=== PATIENT | male | born 1995 ===

== ENCOUNTER 2016-07-03 14:04 | Emergency (ER) | payer MEDICAID, OTHER ==
[2016-07-03 14:13] VITALS: TEMP 98.6
[2016-07-03] MEDS ORDERED: Albuterol-Ipratrop 3 mg / 0.5 (3 ml) UD ONE ×4 (14:16→16:16)
[2016-07-03 14:32] VITALS: BP 123/79
[2016-07-03] MEDS ORDERED: Albuterol-Ipratrop 3 mg / 0.5 (3 ml) UD IH SCH (14:45)
[2016-07-03 16:33] VITALS: O2SAT 99
--- NOTE | 2016-07-03 17:11 | C.PDOC ---
Time Seen by Provider: 07/03/16 14:21 Chief Complaint (Nursing): Shortness Of Breath History Per: Patient Onset/Duration Of Symptoms: Days (3) Current Symptoms Are (Timing): Still Present Associated Symptoms: Dyspnea, Cough Preciptating Factors: Ran Out Of Meds, Exposure To: (dust) Severity: Moderate Additional History Per: Prior Records - Asthma History Prior Intubation (For Asthma): None Rescue Medications: None Control Medications: None Past Medical History Reviewed: Historical Data, Nursing Documentation, Vital Signs Vital Signs: Last Vital Signs Temp 98.6 F 07/03/16 14:08 Pulse 112 H 07/03/16 14:29 Resp 20 07/03/16 16:32 BP 123/79 07/03/16 14:29 Pulse Ox 99 07/03/16 16:32 - Medical History PMH: Asthma Surgical History: No Surg Hx Family History: States: Unknown Family Hx - Social History Hx Tobacco Use: No Hx Alcohol Use: No Hx Substance Use: No Review Of Systems Except As Marked, All Systems Reviewed And Found Negative. Constitutional: Negative for: Fever, Weakness ENT: Negative for: Throat Pain Cardiovascular: Negative for: Chest Pain Respiratory: Positive for: Cough, Shortness of Breath, Wheezing. Negative for: Hemoptysis, Sputum Gastrointestinal: Negative for: Vomiting, Abdominal Pain Musculoskeletal: Negative for: Neck Pain, Back Pain, Leg Pain Skin: Negative for: Rash Neurological: Negative for: Weakness, Numbness, Seizures, Altered Mental Status Physical Exam - Physical Exam Appears: Non-toxic, In Acute Distress (mild) Skin: Normal Color, Warm, Dry, No Rash Head: Atraumatic, Normacephalic Eye(s): bilateral: PERRL, EOMI Neck: Normal ROM, Supple Chest: Symmetrical Cardiovascular: Rhythm Regular Respiratory: No Accessory Muscle Use, Wheezing Gastrointestinal/Abdominal: Soft, No Tenderness Back: No CVA Tenderness Extremity: Normal ROM, No Pedal Edema, No Calf Tenderness Neurological/Psych: Oriented x3, Normal Motor, Normal Sensation ED Course And Treatment O2 Sat by Pulse Oximetry: 99 Pulse Ox Interpretation: Normal Progress Note: Lungs now with only minimal wheezing. Peak flow improved to 350. Pt feels much better now and wants to go home. No SOB. Reevaluation Time: 17:11 Reassessment Condition: Improved Progress - Interventions Interventions:: Observation - Medications Administered Oral: Corticosteriod Inhaled nebulized: Anticholinergic, Beta-2 agonist - Data Reviewed Data Reviewed: Old records - Patient Status Patient status: Mostly improved - Continuity of Care Discussed patient case with:: Patient, ED Nurse - Patient Plan Patient Plan: Discharge, F/U with PCP Disposition Counseled Patient/Family Regarding: Diagnosis, Need For Followup, Rx Given - Disposition Referrals: [facility] [Outside] Disposition: HOME/ ROUTINE Disposition Time: 17:12 Condition: IMPROVED Additional Instructions: Follow up in the clinic. Return to the ER if you develop chest pain, shortness of breath, worsening of symptoms or if you have any other concerns. Prescriptions: Albuterol HFA [Ventolin HFA 90 mcg/actuation (8 g)] 2 puff IH Q4 PRN #1 unit PRN Reason: Wheezing predniSONE [Prednisone] 2 tab PO DAILY #8 tab Instructions: Asthma (ED) - Clinical Impression Clinical Impression: Asthma exacerbation
[2016-07-03 17:15] VITALS: PULSE 98; RESP 18
== END 2016-07-03 17:16 | disposition home or self-care (01) ==
LOC: C.ER 14:04
DX: J45.901 Unspecified asthma with (acute) exacerbation (principal)

== ENCOUNTER 2016-08-23 11:23 | Emergency (ER) | payer MEDICAID, OTHER ==
[2016-08-23] MEDS ORDERED: Albuterol-Ipratrop 3 mg / 0.5 (3 ml) UD INH STA ×3 (11:41→12:57)
--- NOTE | 2016-08-23 11:42 | C.PDOC ---
History Of Present Illness 20 y/o male with hx asthma, no intubations, not steroid dependent, last ED visit 2 months ago, c/o shortness of breath and wheezing for 3-4 days. pt also with cough with yellowish sputum, no fever or chills; pt is a non-smoker. pt has no medications at home. denies chest pain and palpitations. Time Seen by Provider: 08/23/16 11:28 Chief Complaint (Nursing): Shortness Of Breath History Per: Patient History/Exam Limitations: no limitations Onset/Duration Of Symptoms: Days (3) Current Symptoms Are (Timing): Still Present Initiating Event: Other (exposure to dust at work) Associated Symptoms: Productive Cough. denies: Fever, Heart Racing, Leg/Calf Pain, Ankle/Leg Swelling Recent travel outside of the [place]: No Past Medical History Reviewed: Historical Data, Nursing Documentation, Vital Signs Vital Signs: Last Vital Signs Temp 98.3 F 08/23/16 11:42 Pulse 104 H 08/23/16 13:56 Resp 20 08/23/16 13:56 BP 147/75 08/23/16 13:56 Pulse Ox 98 08/23/16 13:56 - Medical History PMH: Asthma Surgical History: No Surg Hx Family History: States: Unknown Family Hx - Social History Hx Tobacco Use: No Hx Alcohol Use: No Hx Substance Use: No - Immunization History Hx Tetanus Toxoid Vaccination: No Hx Influenza Vaccination: No Review Of Systems Constitutional: Negative for: Fever, Chills ENT: Negative for: Ear Pain, Throat Pain Cardiovascular: Negative for: Chest Pain, Palpitations Respiratory: Positive for: Cough, Shortness of Breath, Wheezing. Negative for: Pleuritic Pain Gastrointestinal: Negative for: Abdominal Pain Skin: Negative for: Rash Physical Exam - Physical Exam Appears: Non-toxic, No Acute Distress Skin: Warm, Dry Head: Atraumatic, Normacephalic Eye(s): bilateral: Normal Inspection Oral Mucosa: Moist Throat: Normal Neck: Normal ROM Chest: Symmetrical, No Deformity, No Tenderness Cardiovascular: Rhythm Irregular (occasional irregular beat, rate approx 100) Respiratory: No Accessory Muscle Use, No Rales, No Rhonchi, Wheezing (bilateral , inspiratory and expiratory, all levy) Gastrointestinal/Abdominal: Soft, No Tenderness Extremity: No Pedal Edema, No Calf Tenderness Neurological/Psych: Oriented x3, Normal Speech, Normal Cognition ED Course And Treatment ECG: Interpreted By Me, Viewed By Me ECG Rhythm: Sinus Rhythm Interpretation Of ECG: nsr with sinus arrhythmia, rightward axis Rate From EC O2 Sat by Pulse Oximetry: 99 Pulse Ox Interpretation: Normal Medical Decision Making Medical Decision Making: pt with hx asthma, ran out of meds, with wheezing x 3-4 days. will give steroids and duonebs and re-assess. 1221 pm pt feeling a bit better, still with bilateral wheezing. pf after first tx 250. pt sts max pf up to 500, duoneb ordered. 1258 pm pt still wheezing, cough with phlegm, pf 250 after 2 tx, 3rd tx ordered 326 pm pt feeling much better, is ready to go home, has scant wheezing that clears with productive cough. pt ambulates around ED without sob. pf 400. will d/c with ventolin pump and steroilds Disposition Counseled Patient/Family Regarding: Diagnosis, Need For Followup, Rx Given - Disposition Referrals: [facility] [Outside] [facility] [Outside] Disposition: HOME/ ROUTINE Disposition Time: 15:28 Condition: IMPROVED Additional Instructions: Use pump as directed. Take over the counter Robitussen DM or Mucinex DM- generic brand is fine. Follow up in medical clinic in a few days. Return to ER for any worsening symptoms, trouble breathing or other concerns, Check your peak flow daily. Prescriptions: Albuterol HFA [Ventolin HFA 90 mcg/actuation (8 g)] 2 puff IH Q4 #1 inhaler predniSONE [predniSONE Tab] 2 tab PO DAILY #8 tab Instructions: Asthma (ED) Forms: Gen Discharge Inst Czech - Clinical Impression Clinical Impression: Asthma exacerbation
[2016-08-23 11:43] VITALS: RESP 20
[2016-08-23] MEDS ORDERED: Albuterol-Ipratrop 3 mg / 0.5 (3 ml) UD ONE ×3 (11:58→13:30)
[2016-08-23 15:35] VITALS: BP 114/73; PULSE 96; TEMP 98.5
[2016-08-23 22:15] VITALS: O2SAT 99
--- NOTE | 2016-08-29 16:45 | CARD ---
APPROVED REPORT EKG Measurement Heart [id number] <Conclusion> Normal sinus rhythm with sinus arrhythmia Rightward axis Borderline ECG
== END 2016-08-23 15:39 | disposition home or self-care (01) ==
LOC: C.ER 11:23
DX: J45.901 Unspecified asthma with (acute) exacerbation (principal)

== ENCOUNTER 2016-10-09 13:31 | Emergency (ER) | payer MEDICAID ==
[2016-10-09 13:41] VITALS: TEMP 97
[2016-10-09] MEDS ORDERED: Albuterol-Ipratrop 3 mg / 0.5 (3 ml) UD ONE ×3 (13:51→14:16)
[2016-10-09] MEDS ORDERED: Albuterol-Ipratrop 3 mg / 0.5 (3 ml) UD INH STA ×3 (13:54→14:17)
--- NOTE | 2016-10-09 15:26 | RAD ---
HISTORY: cough/wheezing COMPARISON: None available. TECHNIQUE: Chest PA and lateral FINDINGS: LUNGS: No focal consolidation. Please note that chest x-ray has limited sensitivity for the detection of pulmonary masses. PLEURA: No significant pleural effusion identified. No definite pneumothorax . CARDIOVASCULAR: The cardiomediastinal silhouette appears within normal limits of size. OSSEOUS STRUCTURES: No acute osseous abnormality identified. VISUALIZED UPPER ABDOMEN: Unremarkable. OTHER FINDINGS: None. IMPRESSION: No focal consolidation, significant pleural effusion, or definite pneumothorax identified.
--- NOTE | 2016-10-09 15:46 | C.PDOC ---
History Of Present Illness 21 y/o male pmhx asthma presents to the ED with complaints of asthma exacerbation x2 days. Pt reports cough and wheezing. Denies fever, chills, sore throat or any other complaints. Pt ran out of medications and nebulizer machine broke. Time Seen by Provider: 10/09/16 14:10 Chief Complaint (Nursing): Shortness Of Breath History Per: Patient History/Exam Limitations: no limitations Onset/Duration Of Symptoms: Days Current Symptoms Are (Timing): Still Present Initiating Event: Out Of Medications Severity: Moderate Associated Symptoms: denies: Fever, Chills Recent travel outside of the [place]: No Past Medical History Reviewed: Historical Data, Nursing Documentation, Vital Signs Vital Signs: Last Vital Signs Temp 97 F L 10/09/16 13:38 Pulse 87 10/09/16 16:05 Resp 18 10/09/16 16:05 BP 119/78 10/09/16 16:05 Pulse Ox 96 10/09/16 16:32 - Medical History PMH: Asthma Family History: States: Unknown Family Hx - Social History Hx Tobacco Use: No Hx Alcohol Use: No Hx Substance Use: No - Immunization History Hx Tetanus Toxoid Vaccination: No Hx Influenza Vaccination: No Review Of Systems Except As Marked, All Systems Reviewed And Found Negative. Constitutional: Negative for: Fever, Chills ENT: Negative for: Throat Pain Respiratory: Positive for: Cough, Shortness of Breath Physical Exam - Physical Exam Appears: Non-toxic, No Acute Distress Skin: Warm, Dry, No Rash Head: Atraumatic, Normacephalic Chest: Symmetrical Cardiovascular: Rhythm Regular, No Murmur Respiratory: No Rales, No Rhonchi, Wheezing (diffuse) Extremity: Normal ROM Neurological/Psych: Oriented x3, Normal Speech, Normal Cognition ED Course And Treatment O2 Sat by Pulse Oximetry: 96 (room air) Pulse Ox Interpretation: Normal - Radiology CXR: Interpreted by Me CXR Interpretation: Yes: No Acute Disease Progress Note: Plan: nebulizer treatements (3), CXR, rednisone. On reassessment , patient is resting comfortably with no wheezing, chest pain, or retractions. Oxygen saturation and breath sounds have improved. Patient is alert and oriented x 3. Patient was advised to follow up with physician/clinic in 1-2 days and return to ED if symptoms worsen or persist. Disposition - Disposition Disposition: HOME/ ROUTINE Disposition Time: 15:47 Condition: IMPROVED Additional Instructions: Follow up with PMD/Clinic within 2-3 days. Return to ED if feel worse. Prescriptions: Albuterol 0.083% [Albuterol Sulfate 3 Ml] 3 ml IH .Q4-6H #100 vial Nebulizer [Compact Compressor Nebulizer] 1 dev XX PRN PRN #1 dev PRN Reason: Wheezing predniSONE [predniSONE Tab] 2 tab PO DAILY #8 tab Albuterol HFA [Ventolin HFA 90 mcg/actuation (8 g)] 1 puff IH .Q4-6H #1 inhaler Instructions: Asthma (ED) - Clinical Impression Clinical Impression: Asthma exacerbation - PA / [employer] / Resident Statement MD/DO has reviewed & agrees with the documentation as recorded. - Scribe Statement The provider has reviewed the documentation as recorded by the Scribanne Avalos All medical record entries made by the Scribanne were at my direction and personally dictated by me. I have reviewed the chart and agree that the record accurately reflects my personal performance of the history, physical exam, medical decision making, and the department course for this patient. I have also personally directed, reviewed, and agree with the discharge instructions and disposition.
[2016-10-09 16:06] VITALS: BP 119/78; PULSE 87; RESP 18
[2016-10-09 16:29] VITALS: O2SAT 96
== END 2016-10-09 16:06 | disposition home or self-care (01) ==
LOC: C.ER 13:31
DX: J45.901 Unspecified asthma with (acute) exacerbation (principal)

== ENCOUNTER 2016-11-14 18:00 | Emergency (ER) | payer SELFPAY ==
[2016-11-14] MEDS ORDERED: Albuterol-Ipratrop 3 mg / 0.5 (3 ml) UD ONE ×2 (18:04→20:06)
[2016-11-14 18:06] VITALS: BMI 22.8
[2016-11-14 18:37] VITALS: O2SAT 95
--- NOTE | 2016-11-14 19:31 | C.PDOC ---
History Of Present Illness Patient presents to the ER with a complaint of wheezing and SOB; he states he ran out of his inhaler. Patient is currently speaking in complete sentences; denies chest pain, palpitations, fever, or chills. Time Seen by Provider: 11/14/16 19:31 Chief Complaint (Nursing): Shortness Of Breath History Per: Patient History/Exam Limitations: no limitations Onset/Duration Of Symptoms: Hrs Current Symptoms Are (Timing): Still Present Initiating Event: Out Of Medications Current Respiratory Medications: Steroid Inhaler Severity: Mild Pain Scale Rating Of: 4 Associated Symptoms: denies: Fever, Chills Recent travel outside of the [place]: No Past Medical History Reviewed: Historical Data, Nursing Documentation, Vital Signs Vital Signs: Last Vital Signs Temp 98.5 F 11/14/16 18:05 Pulse 99 H 11/14/16 18:05 Resp 16 11/14/16 18:34 BP 124/75 11/14/16 18:05 Pulse Ox 95 11/14/16 19:52 - Medical History PMH: Asthma Surgical History: No Surg Hx Family History: States: No Known Family Hx - Social History Hx Tobacco Use: No Hx Alcohol Use: No Hx Substance Use: No - Immunization History Hx Tetanus Toxoid Vaccination: No Hx Influenza Vaccination: No Review Of Systems Constitutional: Negative for: Fever, Chills Cardiovascular: Negative for: Chest Pain, Palpitations Respiratory: Positive for: Shortness of Breath, Wheezing Physical Exam - Physical Exam Appears: Non-toxic, Other (Awake, Alert) Skin: Warm, Dry Oral Mucosa: Moist Chest: Symmetrical, No Tenderness Cardiovascular: Rhythm Regular, No Murmur Respiratory: No Rales, No Rhonchi, Wheezing (Scattered) Gastrointestinal/Abdominal: Soft, No Tenderness Neurological/Psych: Oriented x3 ED Course And Treatment O2 Sat by Pulse Oximetry: 95 (Room air) Pulse Ox Interpretation: Normal Progress Note: went to resses the patient, but pt had eloped Disposition Counseled Patient/Family Regarding: Studies Performed, Diagnosis - Disposition Disposition: ELOPEMENT - ER ONLY Disposition Time: 19:31 Condition: FAIR Forms: [facility] (Turkmen) - Clinical Impression Clinical Impression: Asthma - Scribe Statement The provider has reviewed the documentation as recorded by the Scribanne Parada All medical record entries made by the Scribe were at my direction and personally dictated by me. I have reviewed the chart and agree that the record accurately reflects my personal performance of the history, physical exam, medical decision making, and the department course for this patient. I have also personally directed, reviewed, and agree with the discharge instructions and disposition.
[2016-11-14] MEDS ORDERED: Albuterol-Ipratrop 3 mg / 0.5 (3 ml) UD IH SCH (19:45)
[2016-11-14 20:36] VITALS: BP 118/77; PULSE 91; RESP 20; TEMP 98.1
== END 2016-11-14 20:26 | disposition left against medical advice (07) ==
LOC: C.ER 18:00
DX: J45.909 Unspecified asthma, uncomplicated (principal)

== ENCOUNTER 2016-11-30 18:19 | Emergency (ER) | payer MEDICAID ==
[2016-11-30 18:19] VITALS: BMI 22.8
[2016-11-30] MEDS ORDERED: Albuterol-Ipratrop 3 mg / 0.5 (3 ml) UD ONE ×3 (18:32→19:29)
[2016-11-30] MEDS: Albuterol-Ipratrop 3 mg / 0.5 (3 ml) UD INH STA ×2 (18:35→19:07)
[2016-11-30] MEDS ORDERED: Albuterol-Ipratrop 3 mg / 0.5 (3 ml) UD INH SCH (19:00)
[2016-11-30] MEDS ORDERED: Albuterol-Ipratrop 3 mg / 0.5 (3 ml) UD INH STA ×2 (19:14)
--- NOTE | 2016-11-30 19:15 | C.PDOC ---
History Of Present Illness 21 year old male with a Hx of asthma with previous hospital admissions, never intubated, presents to the ER with a complaint of asthma exacerbation since yesterday, associated with some wheezing. Denies chest pain, fever, or other complaints. Time Seen by Provider: 11/30/16 19:12 Chief Complaint (Nursing): Shortness Of Breath History Per: Patient History/Exam Limitations: no limitations Onset/Duration Of Symptoms: Hrs Current Symptoms Are (Timing): Still Present Initiating Event: Other (Not known) Current Respiratory Medications: None Associated Symptoms: denies: Fever, Chest Pain Recent travel outside of the [place]: No Past Medical History Reviewed: Historical Data, Nursing Documentation, Vital Signs Vital Signs: Last Vital Signs Temp 98.5 F 11/30/16 20:52 Pulse 95 H 11/30/16 20:52 Resp 16 11/30/16 20:52 BP 121/66 11/30/16 20:52 Pulse Ox 98 11/30/16 22:42 - Medical History PMH: Asthma Surgical History: No Surg Hx Family History: States: Unknown Family Hx - Social History Hx Tobacco Use: No Hx Alcohol Use: No Hx Substance Use: No - Immunization History Hx Tetanus Toxoid Vaccination: No Hx Influenza Vaccination: No Review Of Systems Constitutional: Negative for: Fever Cardiovascular: Negative for: Chest Pain, Palpitations Respiratory: Positive for: Wheezing Gastrointestinal: Negative for: Nausea, Vomiting Neurological: Negative for: Weakness, Numbness Physical Exam - Physical Exam Appears: Non-toxic Skin: Normal Color, Warm, Dry Head: Atraumatic, Normacephalic Oral Mucosa: Moist Chest: Symmetrical, No Tenderness Cardiovascular: Rhythm Regular, No Murmur Respiratory: No Rales, No Rhonchi, Wheezing (Scattered) Gastrointestinal/Abdominal: Soft, No Tenderness Neurological/Psych: Oriented x3, Normal Speech, Normal Cognition ED Course And Treatment O2 Sat by Pulse Oximetry: 98 (Room air) Pulse Ox Interpretation: Normal Medical Decision Making Medical Decision Making: upon my assement, pt already given nebs and steriods per triage. now "much improved" as per pt. Plan: * CXR * Prednisone * Duoneb 20:04 - On reassessment, patient states he feels better, peak flow is up to 350 ; patient continues with scattered wheezing, will continue to reassess. 900: pt reasseseD: states feeling much better, watching videos on phone. scattered wheezing. pt refuses further obs in er. requests to be d/c Disposition - Disposition Referrals: [facility] [Outside] [facility] [Outside] [facility] [Outside] Disposition: HOME/ ROUTINE Disposition Time: 11:00 Condition: STABLE Prescriptions: Albuterol 0.083% [Albuterol 0.083% Inhal Deja (2.5 mg/3 ml) UD] 2.5 mg IH Q4 PRN #20 neb PRN Reason: Wheezing Azithromycin [Zithromax] 250 mg PO DAILY #6 tab Prednisone 50 mg PO DAILY #5 tablet Instructions: Asthma (ED) Forms: [employer] (Stateless) - Clinical Impression Clinical Impression: Asthma - Scribe Statement The provider has reviewed the documentation as recorded by the Scribe Getachew Parada All medical record entries made by the Scribe were at my direction and personally dictated by me. I have reviewed the chart and agree that the record accurately reflects my personal performance of the history, physical exam, medical decision making, and the department course for this patient. I have also personally directed, reviewed, and agree with the discharge instructions and disposition.
[2016-11-30 20:23] VITALS: RESP 16
[2016-11-30 20:53] VITALS: BP 121/66; PULSE 95; TEMP 98.5
[2016-11-30 22:42] VITALS: O2SAT 98
--- NOTE | 2016-12-01 10:14 | RAD ---
HISTORY: Shortness of breath COMPARISON: No prior. TECHNIQUE: Chest PA and lateral FINDINGS: LUNGS: Minimal scarring and or granulomatous changes at the upper lung zones; left greater than right. No focal infiltrate or effusion. PLEURA: No significant pleural effusion identified. No pneumothorax apparent. CARDIOVASCULAR: Normal. OSSEOUS STRUCTURES: No significant abnormalities. VISUALIZED UPPER ABDOMEN: Normal. OTHER FINDINGS: None. IMPRESSION: Minimal scarring and or granulomatous changes at the upper lung zones; left greater than right. No focal infiltrate or effusion.
== END 2016-11-30 20:53 | disposition home or self-care (01) ==
LOC: C.ER 18:19
DX: J45.909 Unspecified asthma, uncomplicated (principal)

== ENCOUNTER 2017-03-28 13:08 | Emergency (ER) | payer MEDICAID, OTHER ==
[2017-03-28 13:08] VITALS: BMI 22.8
[2017-03-28 13:32] VITALS: BP 117/79; PULSE 89; TEMP 98.4
[2017-03-28] MEDS ORDERED: Albuterol-Ipratrop 3 mg / 0.5 (3 ml) UD IH STA (13:45)
--- NOTE | 2017-03-28 13:45 | C.PDOC ---
History Of Present Illness CO ASTHMA EXAC. PS RAN OUT OF MEDS. PS USES [facility] OCCASIONALLY. "WOULDNT BE HERE IF I HAD MY PUMP". NO URI SX, FEVER. NO CP EXAM NONTOXIC HEENT NEG LUNGS +B/L EXP WHEEZE NO RETRACTION, SPEAKING FULL SENTENCES Time Seen by Provider: 03/28/17 13:37 Chief Complaint (Nursing): Cough, Cold, Congestion History Per: Patient History/Exam Limitations: no limitations Onset/Duration Of Symptoms: Hrs Current Symptoms Are (Timing): Still Present Severity: Moderate Past Medical History Reviewed: Historical Data, Nursing Documentation, Vital Signs Vital Signs: Last Vital Signs Temp 98.4 F 03/28/17 13:30 Pulse 89 03/28/17 13:30 Resp 16 03/28/17 14:30 BP 117/79 03/28/17 13:30 Pulse Ox 98 03/28/17 14:37 - Medical History PMH: Asthma Surgical History: No Surg Hx Family History: States: No Known Family Hx - Social History Hx Tobacco Use: No Hx Alcohol Use: No Hx Substance Use: No - Immunization History Hx Tetanus Toxoid Vaccination: No Hx Influenza Vaccination: No Review Of Systems Except As Marked, All Systems Reviewed And Found Negative. Constitutional: Negative for: Fever, Chills ENT: Negative for: Nose Congestion Cardiovascular: Negative for: Chest Pain Respiratory: Negative for: Cough Physical Exam - Physical Exam Appears: Non-toxic Skin: Normal Color, Warm Head: Atraumatic, Normacephalic Eye(s): bilateral: Normal Inspection, PERRL Ear(s): Bilateral: Normal Nose: Normal Throat: Normal, No Erythema, No Exudate Respiratory: Wheezing (bilateral expiratory wheezing), Other (no retraction, speaking full sentences) Neurological/Psych: Oriented x3, Normal Speech, Normal Cognition, Normal Motor, Normal Sensation ED Course And Treatment O2 Sat by Pulse Oximetry: 98 (RA) Pulse Ox Interpretation: Normal Medical Decision Making Medical Decision Making: Plan: --Albuterol 3 ml IH --Nebulizer Treatment Disposition Counseled Patient/Family Regarding: Diagnosis, Need For Followup, Rx Given - Disposition Referrals: [facility] [Outside] [facility] [Outside] Disposition: HOME/ ROUTINE Disposition Time: 13:46 Condition: IMPROVED Prescriptions: Albuterol 0.083% [Albuterol Sulfate 3 Ml] 3 ml IH Q4 #30 neb Albuterol HFA [Ventolin HFA 90 mcg/actuation (8 g)] 1 puff IH Q4 #1 inhaler Instructions: Asthma (ED) Forms: [facility] (Croatian) - Clinical Impression Clinical Impression: Asthma exacerbation, Medication refill - Scribe Statement The provider has reviewed the documentation as recorded by the Dilipibanne Gray Provider Attestation: All medical record entries made by the Dilipibe were at my direction and personally dictated by me. I have reviewed the chart and agree that the record accurately reflects my personal performance of the history, physical exam, medical decision making, and the department course for this patient. I have also personally directed, reviewed, and agree with the discharge instructions and disposition.
[2017-03-28] MEDS ORDERED: Albuterol-Ipratrop 3 mg / 0.5 (3 ml) UD ONE (14:04)
[2017-03-28 14:31] VITALS: RESP 16
[2017-03-28 14:35] VITALS: O2SAT 98
== END 2017-03-28 14:30 | disposition home or self-care (01) ==
LOC: C.ER 13:08
DX: J45.901 Unspecified asthma with (acute) exacerbation (principal); Z76.0 Encounter for issue of repeat prescription

== ENCOUNTER 2017-04-06 13:02 | Emergency (ER) | payer MEDICAID, OTHER ==
[2017-04-06 13:03] VITALS: BMI 22.8
[2017-04-06 13:45] VITALS: TEMP 98.5
[2017-04-06] MEDS ORDERED: Albuterol-Ipratrop 3 mg / 0.5 (3 ml) UD ONE (13:48)
--- NOTE | 2017-04-06 14:38 | C.PDOC ---
History Of Present Illness 21 yr old male with PMHx of asthma, presents to the ER for asthma exacerbation. Patient states he has tried his home meds with no relief. Patient was seen on for med refill. Patient is requesting prednisone. Denies fever, chills, chest pain, nausea, vomiting, abdominal pain, weakness or numbness. Time Seen by Provider: 04/06/17 14:13 Chief Complaint (Nursing): Shortness Of Breath History Per: Patient History/Exam Limitations: no limitations Onset/Duration Of Symptoms: Persistent Current Symptoms Are (Timing): Still Present Past Medical History Reviewed: Historical Data, Nursing Documentation, Vital Signs Vital Signs: Last Vital Signs Temp 98.5 F 04/06/17 13:41 Pulse 80 04/06/17 13:41 Resp 18 04/06/17 13:41 BP 119/85 04/06/17 13:41 Pulse Ox 98 04/06/17 14:38 - Medical History PMH: Asthma Family History: States: No Known Family Hx - Social History Hx Tobacco Use: No Hx Alcohol Use: No Hx Substance Use: No - Immunization History Hx Tetanus Toxoid Vaccination: No Hx Influenza Vaccination: No Review Of Systems Except As Marked, All Systems Reviewed And Found Negative. Constitutional: Negative for: Fever, Chills Cardiovascular: Negative for: Chest Pain Respiratory: Positive for: Other ((+) asthma exacerbation) Gastrointestinal: Negative for: Nausea, Vomiting, Abdominal Pain Neurological: Negative for: Weakness, Numbness Physical Exam - Physical Exam Appears: Non-toxic, No Acute Distress Skin: Warm, Dry, No Rash Oral Mucosa: Moist Throat: Normal, No Erythema, No Exudate, No Drooling Cardiovascular: Rhythm Regular, No Murmur Respiratory: No Rales, No Stridor, Wheezing (occasional wheezing) Extremity: Normal ROM, No Swelling Neurological/Psych: Oriented x3, Normal Speech, Normal Motor ED Course And Treatment O2 Sat by Pulse Oximetry: 98 (RA) Pulse Ox Interpretation: Normal Disposition Counseled Patient/Family Regarding: Diagnosis, Need For Followup, Rx Given - Disposition Referrals: [facility] [Outside] [facility] [Outside] Disposition: HOME/ ROUTINE Disposition Time: 14:37 Condition: IMPROVED Prescriptions: predniSONE [Prednisone] 60 mg PO DAILY #15 tab Instructions: Asthma (ED) Forms: [employer] (Nepali), Work Excuse - Clinical Impression Clinical Impression: Asthma exacerbation - Scribe Statement The provider has reviewed the documentation as recorded by the Scribe Jerrica Garcia Provider Attestation: All medical record entries made by the Scribe were at my direction and personally dictated by me. I have reviewed the chart and agree that the record accurately reflects my personal performance of the history, physical exam, medical decision making, and the department course for this patient. I have also personally directed, reviewed, and agree with the discharge instructions and disposition.
[2017-04-06 14:48] VITALS: BP 118/70; PULSE 89; RESP 20; O2SAT 97
== END 2017-04-06 15:01 | disposition home or self-care (01) ==
LOC: C.ER 13:02
DX: J45.901 Unspecified asthma with (acute) exacerbation (principal)

== ENCOUNTER 2017-05-24 09:40 | Emergency (ER) | payer OTHER ==
[2017-05-24 09:40] VITALS: BMI 22.8
[2017-05-24] MEDS ORDERED: Albuterol-Ipratrop 3 mg / 0.5 (3 ml) UD ONE ×3 (10:34→13:25)
[2017-05-24] MEDS ORDERED: Albuterol-Ipratrop 3 mg / 0.5 (3 ml) UD INH STA (10:39)
[2017-05-24] MEDS ORDERED: Albuterol-Ipratrop 3 mg / 0.5 (3 ml) UD IH STA ×2 (11:44→13:22)
--- NOTE | 2017-05-24 13:10 | C.PDOC ---
Time Seen by Provider: 05/24/17 10:35 Chief Complaint (Nursing): Shortness Of Breath History Per: Patient Onset/Duration Of Symptoms: Days (1) Current Symptoms Are (Timing): Still Present Associated Symptoms: Dyspnea, Cough (dry) Preciptating Factors: Ran Out Of Meds Severity: Moderate Additional History Per: Prior Records - Asthma History Medication Use: PRN, Ran Out Rescue Medications: Short-acting Agonists Past Medical History Reviewed: Historical Data, Nursing Documentation, Vital Signs Vital Signs: Last Vital Signs Temp 98.1 F 05/24/17 10:14 Pulse 95 H 05/24/17 10:14 Resp 24 05/24/17 10:47 BP 123/79 05/24/17 10:14 Pulse Ox 96 05/24/17 10:14 - Medical History PMH: Asthma Surgical History: No Surg Hx Family History: States: Unknown Family Hx - Social History Hx Tobacco Use: No Hx Alcohol Use: No Hx Substance Use: No - Immunization History Hx Tetanus Toxoid Vaccination: No Hx Influenza Vaccination: No Hx Pneumococcal Vaccination: No Review Of Systems Except As Marked, All Systems Reviewed And Found Negative. Constitutional: Negative for: Fever ENT: Negative for: Throat Pain Cardiovascular: Negative for: Chest Pain Respiratory: Positive for: Shortness of Breath, Wheezing. Negative for: Hemoptysis, Sputum Gastrointestinal: Negative for: Vomiting, Abdominal Pain Musculoskeletal: Negative for: Neck Pain, Back Pain, Leg Pain Skin: Negative for: Rash Neurological: Negative for: Weakness, Numbness Physical Exam - Physical Exam Appears: Non-toxic, No Acute Distress Skin: Normal Color, Warm, Dry, No Rash Head: Atraumatic, Normacephalic Eye(s): bilateral: Normal Inspection, PERRL, EOMI Neck: Normal ROM, Supple Cardiovascular: Rhythm Regular Respiratory: No Accessory Muscle Use, Wheezing Gastrointestinal/Abdominal: Soft, No Tenderness Back: No CVA Tenderness Extremity: Normal ROM, No Pedal Edema, No Calf Tenderness Neurological/Psych: Oriented x3, Normal Motor, Normal Sensation ED Course And Treatment O2 Sat by Pulse Oximetry: 96 Pulse Ox Interpretation: Normal Progress Note: Pt feels much better after meds. No longer SOB. He is still wheezing slightly but he is requesting to be discharged home right now. Reassessment Condition: Improved Progress - Interventions Interventions:: Observation - Medications Administered Oral: Corticosteriod Inhaled nebulized: Anticholinergic, Beta-2 agonist - Data Reviewed Data Reviewed: Old records - Patient Status Patient status: Mostly improved - Critical Care Citical Care: Excluding Proc Time Critical Care Time: 30 minutes - Continuity of Care Discussed patient case with:: Patient, ED Nurse - Patient Plan Patient Plan: Discharge, F/U with PCP, Continue present meds Disposition Counseled Patient/Family Regarding: Studies Performed, Diagnosis, Need For Followup, Rx Given - Disposition Referrals: [facility] [Outside] Disposition: HOME/ ROUTINE Disposition Time: 13:12 Condition: IMPROVED Additional Instructions: Follow up with your doctor or in the clinic. Return to the ER immediately if you develop shortness of breath, chest pain, worsening of symptoms or if you have any other concerns. Prescriptions: Albuterol 0.083% [Albuterol Sulfate 3 Ml] 3 ml IH Q4 PRN #100 neb PRN Reason: Wheezing predniSONE [predniSONE Tab] 2 tab PO DAILY #8 tab Instructions: Asthma, Adult (DC) - Clinical Impression Clinical Impression: Asthma exacerbation
[2017-05-24 13:27] VITALS: BP 138/75; PULSE 87; RESP 20; TEMP 98; O2SAT 100
== END 2017-05-24 13:37 | disposition home or self-care (01) ==
LOC: C.ER 09:40
DX: J45.901 Unspecified asthma with (acute) exacerbation (principal)

== ENCOUNTER 2017-06-03 13:01 | Emergency (ER) | payer MEDICAID, OTHER ==
[2017-06-03] MEDS ORDERED: Albuterol-Ipratrop 3 mg / 0.5 (3 ml) UD ONE ×3 (13:06→14:07)
[2017-06-03 13:09] VITALS: BMI 24.3
[2017-06-03] MEDS ORDERED: Albuterol-Ipratrop 3 mg / 0.5 (3 ml) UD IH STA (13:25)
--- NOTE | 2017-06-03 13:33 | RAD ---
HISTORY: SOB COMPARISON: Chest x-ray performed 11/30/16 TECHNIQUE: Chest PA and lateral FINDINGS: LUNGS: No focal consolidation. Please note that chest x-ray has limited sensitivity for the detection of pulmonary masses. PLEURA: No significant pleural effusion identified. No definite pneumothorax . CARDIOVASCULAR: The cardiomediastinal silhouette appears within normal limits of size. OSSEOUS STRUCTURES: No acute osseous abnormality identified. VISUALIZED UPPER ABDOMEN: Unremarkable. OTHER FINDINGS: None. IMPRESSION: No focal consolidation identified.
--- NOTE | 2017-06-03 13:36 | C.PDOC ---
History Of Present Illness 21-year-old male PMHx includes Asthma, w/o hx of intubation, no ICU admission for last 5 yrs, presents to the emergency department for evaluation of chest tightness and wheezing that gradually developed since yesterday. Patient admits to using albuterol inhaler without improvement. Patient admits, similar episodes in past, last one was 3 weeks ago, was seen here in ED. Denies recent illness, fever, chills, drooling, neck pain, dyspnea, chest pain, palpitations, diaphoresis, abd. pain, V/D, UTi sx. Ambulate to Ed for evaluation, not in resp. distress. Time Seen by Provider: 06/03/17 13:10 Chief Complaint (Nursing): Shortness Of Breath History Per: Patient History/Exam Limitations: no limitations Onset/Duration Of Symptoms: Days Current Symptoms Are (Timing): Still Present Past Medical History Reviewed: Historical Data, Nursing Documentation Vital Signs: Last Vital Signs Temp 98.0 F 06/03/17 15:41 Pulse 91 H 06/03/17 15:41 Resp 16 06/03/17 15:41 BP 123/70 06/03/17 15:41 Pulse Ox 99 06/03/17 15:41 - Medical History PMH: Asthma Surgical History: No Surg Hx Family History: States: No Known Family Hx - Social History Hx Tobacco Use: No Hx Alcohol Use: No Hx Substance Use: No - Immunization History Hx Tetanus Toxoid Vaccination: No Hx Influenza Vaccination: No Hx Pneumococcal Vaccination: No Review Of Systems Except As Marked, All Systems Reviewed And Found Negative. Constitutional: Negative for: Fever, Chills Cardiovascular: Positive for: Other (chest tightness). Negative for: Chest Pain , Palpitations Respiratory: Positive for: Wheezing. Negative for: Pleuritic Pain, Sputum Gastrointestinal: Negative for: Nausea, Vomiting Skin: Negative for: Rash Neurological: Negative for: Weakness, Headache, Dizziness Physical Exam - Physical Exam Appears: Well, Non-toxic, No Acute Distress Skin: Normal Color, Warm, Dry, No Rash Head: Normacephalic Eye(s): bilateral: PERRL Ear(s): Bilateral: Normal Nose: No Flaring Oral Mucosa: Moist, No Drooling Lips: Normal Appearing Throat: No Erythema, No Drooling Neck: Trachea Midline, Supple Chest: Symmetrical Cardiovascular: Rhythm Regular, No Murmur, No JVD Respiratory: No Decreased Breath Sounds, No Accessory Muscle Use, No Stridor, Wheezing (diffuse B/L expiratory, R>L) Gastrointestinal/Abdominal: Soft, No Tenderness, No Distention, No Guarding Extremity: Normal ROM, No Deformity, No Swelling Neurological/Psych: Oriented x3, Normal Speech ED Course And Treatment O2 Sat by Pulse Oximetry: 95 (RA) Pulse Ox Interpretation: Normal - Radiology CXR: Interpreted by Me, Read By Radiologist CXR Interpretation: Yes: No Acute Disease Progress Note: Pt was OBS in Ed for 2 hours. On re-evaluation, pt is afebrile, hemodynamicaly stable. Pt reports, moderate improvement in sx, not in resp. distress. Non-toxic. Ambulatory in ED with stable gait. PulsEOx 99% RA. neck : Supple, (-) meingeal sign. ENT: no acute findings. Lungs: mod improvement in B/L exp wheezing, BS equal B/L. CVS: (+)S1S2, reg. Abd: benign. Neurologicaly intact. Imaging review (-) acute infiltrate. Pt has clinical findings c/w asthma exacerbation. Pt advised to F/u with PMD, Pulm in 2-3 days for re-eavl. return to Ed if any worsening or new changes. Disposition Counseled Patient/Family Regarding: Studies Performed, Diagnosis, Need For Followup, Rx Given - Disposition Referrals: [facility] [Outside] Disposition: HOME/ ROUTINE Disposition Time: 15:05 Condition: STABLE Additional Instructions: Encourage fluids Take medication as prescribed Follow up with PMD, Pulmonology in 2-3 days for re-evaluation. return to Ed if any worsening or new changes. Prescriptions: Albuterol HFA [Ventolin HFA 90 mcg/actuation (8 g)] 1 puff IH Q6 #1 inhaler Prednisone [Deltasone] 60 mg PO DAILY #9 tablet Instructions: Asthma in Adults Forms: [facility] (Andorran) - Clinical Impression Clinical Impression: Asthma exacerbation
[2017-06-03] MEDS ORDERED: Magnesium Sulfate 1 gm in D5W 2 GM/200 ML BAG IVPB ONE (13:40)
[2017-06-03] MEDS: Magnesium Sulfate 1 gm in D5W 1 GM/100 ML BAG IVPB SCH ×2 (13:51→14:24)
[2017-06-03 14:06] VITALS: RESP 16
[2017-06-03 15:42] VITALS: BP 123/70; PULSE 91; TEMP 98
[2017-06-04 12:53] VITALS: O2SAT 95
== END 2017-06-03 15:42 | disposition home or self-care (01) ==
LOC: C.ER 13:01
DX: J45.901 Unspecified asthma with (acute) exacerbation (principal)
CPT/HCPCS: 71046; 96365; 96366; 96375; 99285; J2930; J3475

== ENCOUNTER 2017-06-10 08:04 | Emergency (ER) | payer MEDICAID ==
[2017-06-10 08:04] VITALS: BMI 22.8
[2017-06-10] MEDS ORDERED: Albuterol-Ipratrop 3 mg / 0.5 (3 ml) UD ONE ×3 (08:17→09:18)
[2017-06-10] MEDS ORDERED: Albuterol-Ipratrop 3 mg / 0.5 (3 ml) UD INH STA ×3 (08:21→09:05)
[2017-06-10 08:41] VITALS: O2SAT 98
--- NOTE | 2017-06-10 09:06 | C.PDOC ---
History Of Present Illness 21 y/o male with a PMHx of asthma presents complaining of difficulty breathing and wheezing since last night. Also reports productive cough but no fevers or chills. No history of prior intubations. Patient was seen in the ED 1 week ago. Took 2 days of steroids but states he was unable to fill the rx for the inhaler after his last visit. Time Seen by Provider: 06/10/17 08:38 Chief Complaint (Nursing): Shortness Of Breath History Per: Patient History/Exam Limitations: no limitations Onset/Duration Of Symptoms: Days (x2) Current Symptoms Are (Timing): Still Present Initiating Event: Out Of Medications Associated Symptoms: Productive Cough Past Medical History Reviewed: Historical Data, Nursing Documentation, Vital Signs Vital Signs: Last Vital Signs Temp 97.8 F 06/10/17 10:35 Pulse 78 06/10/17 10:35 Resp 18 06/10/17 10:35 BP 104/58 L 06/10/17 10:35 Pulse Ox 98 06/10/17 10:35 - Medical History PMH: Asthma, Fractures (Left arm) Other Surgeries: Left arm surgery Family History: States: Unknown Family Hx - Social History Hx Tobacco Use: No Hx Alcohol Use: No Hx Substance Use: No - Immunization History Hx Tetanus Toxoid Vaccination: No Hx Influenza Vaccination: No Hx Pneumococcal Vaccination: No Review Of Systems Constitutional: Negative for: Fever, Chills Cardiovascular: Negative for: Chest Pain Respiratory: Positive for: Cough, Shortness of Breath, Sputum, Wheezing Physical Exam - Physical Exam Appears: No Acute Distress, Other (Note: Pt given duoneb x2 prior to my examination) Skin: No Rash Head: Atraumatic, Normacephalic Eye(s): bilateral: PERRL, EOMI Oral Mucosa: Moist Neck: Supple Chest: No Tenderness Cardiovascular: Rhythm Regular, No Murmur Respiratory: Wheezing (Scattered wheezing bilaterally), No Other (respiratory distress) Extremity: No Calf Tenderness, No Swelling Neurological/Psych: Other (Alert, no gross focal deficits) ED Course And Treatment O2 Sat by Pulse Oximetry: 98 (RA) Pulse Ox Interpretation: Normal - Other Rad CHEST X-RAY X-Ray: Viewed By Me, Read By Radiologist Interpretation: FINDINGS: LUNGS: No active pulmonary disease. PLEURA: No significant pleural effusion identified. No pneumothorax apparent. CARDIOVASCULAR: Normal. OSSEOUS STRUCTURES: No significant abnormalities. VISUALIZED UPPER ABDOMEN: Normal. OTHER FINDINGS: None. IMPRESSION: No active disease. Medical Decision Making Medical Decision Making: Patient initially given Duonebx2 prior to my examination. 9:05 Ordered third duoneb 9:47 On repeat examination, pt still with expiratory wheezing on the left Will order CXR 1104 cxr neg, oleg d/c with mdi, meds for neb machine. pt took steroids last week, will not repeat. Disposition Counseled Patient/Family Regarding: Studies Performed, Diagnosis, Need For Followup, Rx Given - Disposition Referrals: [facility] at [facility] [Outside] Disposition: HOME/ ROUTINE Disposition Time: 11:05 Condition: IMPROVED Additional Instructions: Please use inhaler or nebulizer machine every 4 hours. Follow up in medical clinic. Return to ER for any worse symptoms. Prescriptions: Albuterol 0.083% [Albuterol 0.083% Inhal Deja (2.5 mg/3 ml) UD] 2.5 mg IH Q6 # 100 neb Albuterol HFA [Ventolin HFA 90 mcg/actuation (8 g)] 2 puff IH Q6 #1 inhaler Instructions: Asthma, Adult (DC) Forms: [facility] (Peruvian), General Discharge Instructions - Clinical Impression Clinical Impression: Asthma exacerbation - PA / STRUCTURES TECHNICIAN / Resident Statement MD/DO has reviewed & agrees with the documentation as recorded. - Scribe Statement The provider has reviewed the documentation as recorded by the Scribe (Brii Stafford) All medical record entries made by the Scribe were at my direction and personally dictated by me. I have reviewed the chart and agree that the record accurately reflects my personal performance of the history, physical exam, medical decision making, and the department course for this patient. I have also personally directed, reviewed, and agree with the discharge instructions and disposition.
--- NOTE | 2017-06-10 10:05 | RAD ---
HISTORY: cough wheeze left side COMPARISON: Comparison made with chest radiograph dated 06/03/2017 TECHNIQUE: Chest PA and lateral FINDINGS: LUNGS: No active pulmonary disease. PLEURA: No significant pleural effusion identified. No pneumothorax apparent. CARDIOVASCULAR: Normal. OSSEOUS STRUCTURES: No significant abnormalities. VISUALIZED UPPER ABDOMEN: Normal. OTHER FINDINGS: None. IMPRESSION: No active disease.
[2017-06-10 10:36] VITALS: BP 104/58; PULSE 78; RESP 18; TEMP 97.8
== END 2017-06-10 11:20 | disposition home or self-care (01) ==
LOC: C.ER 08:04
DX: J45.901 Unspecified asthma with (acute) exacerbation (principal)

== ENCOUNTER 2017-09-10 06:42 | Emergency (ER) | payer MEDICAID ==
[2017-09-10 06:43] VITALS: BMI 25.0
[2017-09-10 06:49] VITALS: BP 125/82; PULSE 88; TEMP 98.5; O2SAT 98
[2017-09-10] MEDS ORDERED: Albuterol-Ipratrop 3 mg / 0.5 (3 ml) UD ONE ×3 (06:55→08:05)
[2017-09-10] MEDS ORDERED: Albuterol 0.083% Inhal Sol (2.5 mg/3 mL) UD IH STA ×4 (07:18→08:37)
[2017-09-10 07:26] VITALS: RESP 18
--- NOTE | 2017-09-10 07:31 | C.PDOC ---
History Of Present Illness 22 y/o male presents to the ED complaining of SOB and wheezing since yesterday. Patient reports PMHx of asthma, and states he currently has no medications at home. Patient denies chest pain, cough, fever, or prior hx of intubations. He has been previously admitted for asthma exacerbations. Time Seen by Provider: 09/10/17 07:17 Chief Complaint (Nursing): Shortness Of Breath History Per: Patient History/Exam Limitations: no limitations Onset/Duration Of Symptoms: Days (x2) Current Symptoms Are (Timing): Still Present Initiating Event: Out Of Medications Current Respiratory Medications: See Home Med List Severity: Moderate Past Medical History Reviewed: Historical Data, Nursing Documentation, Vital Signs Vital Signs: Last Vital Signs Temp 98.5 F 09/10/17 06:46 Pulse 88 09/10/17 06:46 Resp 18 09/10/17 07:23 BP 125/82 09/10/17 06:46 Pulse Ox 98 09/10/17 11:33 - Medical History PMH: Asthma, Fractures (Left arm) Other Surgeries: Left arm surgery Family History: States: No Known Family Hx - Social History Hx Tobacco Use: No Hx Alcohol Use: No Hx Substance Use: No - Immunization History Hx Tetanus Toxoid Vaccination: No Hx Influenza Vaccination: No Hx Pneumococcal Vaccination: No Review Of Systems Constitutional: Negative for: Fever, Chills Cardiovascular: Negative for: Chest Pain, Palpitations Respiratory: Positive for: Shortness of Breath, Wheezing. Negative for: Cough Gastrointestinal: Negative for: Nausea, Vomiting Skin: Negative for: Rash Physical Exam - Physical Exam Appears: Well, Non-toxic, Other (Able to speak in full sentences, in mild distress, malodorous) Skin: Normal Color, Warm, Dry, No Rash Eye(s): bilateral: Normal Inspection Nose: Normal Oral Mucosa: Moist Throat: Normal, No Erythema, No Exudate, No Drooling Neck: Normal, Supple Cardiovascular: Rhythm Regular Respiratory: No Accessory Muscle Use, No Rales, No Rhonchi, Wheezing ( expiratory wheezing bilaterally) Gastrointestinal/Abdominal: Soft, No Tenderness Extremity: Normal ROM, No Pedal Edema, No Calf Tenderness Extremity: Bilateral: Atraumatic, Normal Color And Temperature, Normal ROM Pulses: Left Dorsalis Pedis: Normal, Right Dorsalis Pedis: Normal Neurological/Psych: Oriented x3 ED Course And Treatment - Laboratory Results Result Diagrams: 09/10/17 08:58 09/10/17 08:58 O2 Sat by Pulse Oximetry: 98 (RA) Pulse Ox Interpretation: Normal - Radiology CXR: Interpreted by Me, Viewed By Me, Read By Radiologist CXR Interpretation: Yes: No Acute Disease. No: Infiltrates Progress Note: Patient given PO Predisone and nebulixer treaments. 8:36 On reassessment, patient continues to wheezing diffusely. IV line inserted, patient given IV magnesium sulfate 2G and more nebulizer treatments. Blood work and CXR ordered. 9:46am Informed by RN that patient eloped from the ED. Critical Care Time - Critical Care Note Total Time (in mins): 45 Documented critical care: time excludes all time spent performing seperately billable procedures. Disposition - Disposition Disposition: ELOPEMENT - ER ONLY Disposition Time: 09:46 Condition: STABLE Forms: [facility] (Macedonian) - POA Present On Arrival: None - Clinical Impression Clinical Impression: Asthma exacerbation - Scribe Statement The provider has reviewed the documentation as recorded by the Wili Stafford Provider Attestation: All medical record entries made by the Dilipibanne were at my direction and personally dictated by me. I have reviewed the chart and agree that the record accurately reflects my personal performance of the history, physical exam, medical decision making, and the department course for this patient. I have also personally directed, reviewed, and agree with the discharge instructions and disposition.
[2017-09-10] MEDS ORDERED: Albuterol-Ipratrop 3 mg / 0.5 (3 ml) UD INH STA (08:04)
[2017-09-10] MEDS ORDERED: Magnesium Sulfate 1 gm in D5W 1 GM/100 ML BAG IV STA (08:36)
[2017-09-10] MEDS ORDERED: MethylPREDNISolone 40 mg Vial IVP STA (08:36)
[2017-09-10] MEDS ORDERED: Albuterol 0.083% Inhal Sol (2.5 mg/3 mL) UD ONE (09:02)
[2017-09-10] MEDS ORDERED: MethylPREDNISolone 40 mg Vial ONE (09:02)
[2017-09-10] MEDS ORDERED: Magnesium Sulfate 1 gm in D5W 2 GM/200 ML BAG IVPB ONE (09:02)
[2017-09-10 09:06] LABS: BASO # 0.1 K/uL (0.0-0.2); BASO % 1.4 % (0.0-2.0); EOS # 0.9 K/uL (0.0-0.7); EOS % 11.4 % (0.0-4.0); HEMOGLOBIN 13.7 g/dL (12.0-18.0); LYMPH # 1.8 K/uL (1.0-4.3); LYMPH % 23.2 % (20.0-40.0); MEAN CORPUSCULAR HEMOGLOBIN 28.9 pg (27.0-31.0); MEAN PLATELET VOLUME 8.2 fL (7.2-11.7); MONO # 0.5 K/uL (0.0-0.8); MONO % 5.8 % (0.0-10.0); NEUT # 4.5 K/uL (1.8-7.0); NEUT % 58.2 % (50.0-75.0); NRBC % 0.1 % (0.0-2.0); RBC 4.73 Mil/uL (4.40-5.90); RED CELL DISTRIBUTION WIDTH 13.7 % (11.5-14.5); WHITE BLOOD COUNT 7.8 K/uL (4.8-10.8)
[2017-09-10 09:20] LABS: ALB/GLOB RATIO 1.5 (1.0-2.1); ALBUMIN 4.7 g/dL (3.5-5.0); ALT/SGPT 20 U/L (21-72); AST/SGOT 24 U/L (17-59); BLOOD UREA NITROGEN 15 mg/dL (9-20); CALCIUM 9.1 mg/dl (8.6-10.4); GFR AFRICAN-AMERICAN > 60; GFR NON-AFRICAN AMERICAN > 60
--- NOTE | 2017-09-10 09:30 | RAD ---
PROCEDURE: CHEST RADIOGRAPH, 1 VIEW HISTORY: SOB COMPARISON: Chest dated 06/10/2017 FINDINGS: LUNGS: Clear. PLEURA: No pneumothorax or pleural fluid seen. CARDIOVASCULAR: Normal. OSSEOUS STRUCTURES: No significant abnormalities. VISUALIZED UPPER ABDOMEN: Normal. OTHER FINDINGS: None. IMPRESSION: No active disease.
== END 2017-09-10 09:46 | disposition left against medical advice (07) ==
LOC: C.ER 06:42
DX: J45.901 Unspecified asthma with (acute) exacerbation (principal)
CPT/HCPCS: 71045; 80053; 85025; 94640; 96365; 96375; 99283; J2920; J3475

== ENCOUNTER 2017-11-21 21:01 | Emergency (ER) | payer MEDICAID ==
[2017-11-21 21:01] VITALS: BMI 25.0
[2017-11-21 21:21] VITALS: BP 119/85; PULSE 99; RESP 20; TEMP 98.8; O2SAT 95
[2017-11-21] MEDS: Albuterol 0.083% Inhal Sol (2.5 mg/3 mL) UD INH SCH ×2 (21:38→22:00)
[2017-11-21] MEDS ORDERED: Albuterol 0.083% Inhal Sol (2.5 mg/3 mL) UD ONE (21:39)
[2017-11-21] MEDS ORDERED: Albuterol-Ipratrop 3 mg / 0.5 (3 ml) UD ONE (22:47)
[2017-11-21] MEDS: Albuterol-Ipratrop 3 mg / 0.5 (3 ml) UD IH SCH ×2 (22:53→23:14)
[2017-11-22] MEDS ORDERED: Albuterol-Ipratrop 3 mg / 0.5 (3 ml) UD ONE (00:14)
[2017-11-22] MEDS ORDERED: DiphenhydrAMINE 12.5 mg/5 ml LIQ UD (5 ml) PO STA (00:28)
--- NOTE | 2017-11-22 00:28 | C.PDOC ---
Time Seen by Provider: 11/21/17 21:30 Chief Complaint (Nursing): Cough, Cold, Congestion Past Medical History Vital Signs: Last Vital Signs Temp 98.8 F 11/21/17 21:18 Pulse 99 H 11/21/17 21:18 Resp 20 11/21/17 21:18 BP 119/85 11/21/17 21:18 Pulse Ox 95 11/22/17 00:51 - Medical History PMH: Asthma, Fractures (Left arm surgery 2006) Family History: States: Unknown Family Hx - Social History Hx Tobacco Use: No Hx Alcohol Use: No Hx Substance Use: No - Immunization History Hx Tetanus Toxoid Vaccination: No Hx Influenza Vaccination: No Hx Pneumococcal Vaccination: No ED Course And Treatment O2 Sat by Pulse Oximetry: 95 Disposition Counseled Patient/Family Regarding: Diagnosis, Need For Followup, Rx Given - Disposition Disposition: HOME/ ROUTINE Disposition Time: 00:26 Condition: STABLE Additional Instructions: Take medications as directed Follow up with PMD Return to ER if worse Prescriptions: Albuterol HFA [Ventolin HFA 90 mcg/actuation (8 g)] 2 puff IH [id number] #1 inhaler Benzonatate [Tessalon Perles] 100 mg PO TID #20 sgl Cetirizine HCl [Zyrtec] 10 mg PO DAILY #14 capsule predniSONE [Prednisone] 40 mg PO DAILY #8 tab Instructions: Asthma, Adult (DC) Forms: [facility] (Portuguese) - Clinical Impression Clinical Impression: Asthma, Upper respiratory infection
--- NOTE | 2017-11-22 00:31 | C.PDOC ---
History Of Present Illness 22 year old male presents to the ED c/o chest tightness, wheezing, SOB that started today. Patient reports having a dry non productive cough since yesterday as well. Patient denies fever, chills, rash, recent travel, sick contacts. Time Seen by Provider: 11/21/17 21:30 Chief Complaint (Nursing): Cough, Cold, Congestion History Per: Patient History/Exam Limitations: no limitations Onset/Duration Of Symptoms: Days Current Symptoms Are (Timing): Still Present Location Of Pain: Throat Sick Contacts (Context): None Associated Symptoms: Cough. denies: Fever Ear Symptoms: Bilateral: None Recent travel outside of the [place]: No Additional History Per: Patient Past Medical History Reviewed: Historical Data, Nursing Documentation, Vital Signs Vital Signs: Last Vital Signs Temp 98.8 F 11/21/17 21:18 Pulse 99 H 11/21/17 21:18 Resp 20 11/21/17 21:18 BP 119/85 11/21/17 21:18 Pulse Ox 95 11/22/17 00:31 - Medical History PMH: Asthma, Fractures (Left arm surgery 2005) Surgical History: No Surg Hx Family History: States: Unknown Family Hx - Social History Hx Tobacco Use: No Hx Alcohol Use: No Hx Substance Use: No - Immunization History Hx Tetanus Toxoid Vaccination: No Hx Influenza Vaccination: No Hx Pneumococcal Vaccination: No Review Of Systems Constitutional: Negative for: Fever, Chills ENT: Negative for: Nose Pain, Nose Discharge, Nose Congestion Respiratory: Positive for: Cough, Shortness of Breath, Wheezing Gastrointestinal: Negative for: Nausea, Vomiting Skin: Negative for: Rash Physical Exam - Physical Exam Appears: Non-toxic, No Acute Distress Skin: Normal Color, Warm, Dry Head: Atraumatic, Normacephalic Eye(s): bilateral: Normal Inspection, PERRL Nose: No Discharge Oral Mucosa: Moist Throat: Normal, No Erythema Neck: Normal ROM, Supple Chest: Symmetrical Cardiovascular: Rhythm Regular Respiratory: Decreased Breath Sounds, No Rhonchi, Wheezing (diffuse ) Extremity: Normal ROM, No Tenderness, No Swelling Neurological/Psych: Oriented x3, Normal Speech Gait: Steady ED Course And Treatment O2 Sat by Pulse Oximetry: 95 (ON RA) Pulse Ox Interpretation: Normal Progress Note: Plan: - Albuterol X2. - benadryl 25 mg PO. - Duoneb X2. - Prednisone 60 mg PO Reevaluation Time: 00:47 Reassessment Condition: Improved (Pt has much improved,no resp distress, minimal wheezes with good AE. Pt is ambulatory in ED with no dyspnea. Will d/c home) Disposition - Disposition Disposition: HOME/ ROUTINE Disposition Time: 00:48 Condition: STABLE Additional Instructions: Take medications as directed Follow up with PMD Return to ER if worse Prescriptions: Albuterol HFA [Ventolin HFA 90 mcg/actuation (8 g)] 2 puff IH [id number] #1 inhaler predniSONE [Prednisone] 40 mg PO DAILY #8 tab Instructions: Asthma, Adult (DC) Forms: [facility] (Bahraini) - Clinical Impression Clinical Impression: Asthma, Upper respiratory infection - PA / MANAGER PACKAGE / Resident Statement MD/DO has reviewed & agrees with the documentation as recorded. - Scribe Statement The provider has reviewed the documentation as recorded by the Scribe Marvin Williamson All medical record entries made by the Scribe were at my direction and personally dictated by me. I have reviewed the chart and agree that the record accurately reflects my personal performance of the history, physical exam, medical decision making, and the department course for this patient. I have also personally directed, reviewed, and agree with the discharge instructions and disposition.
[2017-11-22] MEDS ORDERED: DiphenhydrAMINE 12.5 mg/5 ml LIQ UD (5 ml) ONE (00:49)
== END 2017-11-22 00:57 | disposition home or self-care (01) ==
LOC: C.ER 21:01
DX: J45.909 Unspecified asthma, uncomplicated (principal); J06.9 Acute upper respiratory infection, unspecified

== ENCOUNTER 2017-12-25 20:16 | Emergency (ER) | payer MEDICAID ==
[2017-12-25 20:17] VITALS: BMI 25.0
[2017-12-25 20:51] VITALS: BP 111/78; TEMP 98.3
[2017-12-25] MEDS ORDERED: Albuterol 0.083% Inhal Sol (2.5 mg/3 mL) UD ONE ×3 (20:56→21:38)
--- NOTE | 2017-12-25 21:10 | C.PDOC ---
History Of Present Illness 22 year old male with PMHx of asthma presents to the ED c/o SOB and chest tightness. Patient reports he works in construction and thinks this might have triggered his asthma exacerbation. Patient reports with no relief. Patient denies fever, chills, URI symptoms, nausea, vomit, rash, recent travel, sick contacts. Time Seen by Provider: 12/25/17 20:58 Chief Complaint (Nursing): Shortness Of Breath History Per: Patient History/Exam Limitations: no limitations Onset/Duration Of Symptoms: Days Current Symptoms Are (Timing): Still Present Initiating Event: Upper Respiratory Illness Quality: Tightness Exacerbating Factor(s): Coughing Current Respiratory Medications: See Home Med List Recent travel outside of the [place]: No Past Medical History Reviewed: Historical Data, Nursing Documentation, Vital Signs Vital Signs: Last Vital Signs Temp 98.3 F 12/25/17 20:48 Pulse 97 H 12/25/17 20:48 Resp 24 12/25/17 20:48 BP 111/78 12/25/17 20:48 Pulse Ox 97 12/25/17 20:48 - Medical History PMH: Asthma, Fractures (Left arm surgery 2006) Surgical History: No Surg Hx Family History: States: Unknown Family Hx - Social History Hx Tobacco Use: No Hx Alcohol Use: No Hx Substance Use: No - Immunization History Hx Tetanus Toxoid Vaccination: No Hx Influenza Vaccination: No Hx Pneumococcal Vaccination: No Review Of Systems Constitutional: Negative for: Fever, Chills Cardiovascular: Positive for: Chest Pain Respiratory: Positive for: Cough, Shortness of Breath Gastrointestinal: Negative for: Nausea, Vomiting Skin: Negative for: Rash Neurological: Negative for: Weakness, Numbness Physical Exam - Physical Exam Appears: Non-toxic, No Acute Distress Skin: Normal Color, Warm, Dry Head: Atraumatic, Normacephalic Eye(s): bilateral: Normal Inspection Ear(s): Bilateral: Normal Nose: No Discharge Oral Mucosa: Moist Throat: Normal, No Erythema, No Exudate Neck: Normal ROM, Supple Chest: Symmetrical Cardiovascular: Rhythm Regular Respiratory: Normal Breath Sounds, No Rales, No Rhonchi, No Wheezing Extremity: Normal ROM, No Tenderness, No Swelling Neurological/Psych: Oriented x3, Normal Speech, Normal Cognition Gait: Steady ED Course And Treatment O2 Sat by Pulse Oximetry: 97 (ON RA) Pulse Ox Interpretation: Normal Progress Note: Plan: - 2 albuterol. - 3 duoneb. - Prednisone 40 mg PO. On reassessment, patient is resting comfortably with no wheezing, chest pain, or retractions. Oxygen saturation and breath sounds have improved. Patient is alert and oriented x 3. Patient was advised to follow up with physician/clinic in 1-2 days and return to ED if symptoms worsen or persist. Disposition Counseled Patient/Family Regarding: Diagnosis, Need For Followup, Rx Given - Disposition Referrals: [facility] [Outside] Disposition: HOME/ ROUTINE Disposition Time: 23:38 Condition: STABLE Additional Instructions: Please follow up with PMD Take meds as directed Return to ER if worse Prescriptions: Albuterol HFA [Ventolin HFA 90 mcg/actuation (8 g)] 2 puff IH [id number] #1 inhaler predniSONE [Prednisone] 40 mg PO DAILY #10 tab Instructions: Asthma, Adult (DC) Forms: [facility] (Macedonian) - Clinical Impression Clinical Impression: Asthma exacerbation - PA / SERVICE UNIT OPERATOR / Resident Statement MD/DO has reviewed & agrees with the documentation as recorded. - Scribe Statement The provider has reviewed the documentation as recorded by the Scribe Marvin Williamson All medical record entries made by the Scribe were at my direction and personally dictated by me. I have reviewed the chart and agree that the record accurately reflects my personal performance of the history, physical exam, medical decision making, and the department course for this patient. I have also personally directed, reviewed, and agree with the discharge instructions and disposition.
[2017-12-25] MEDS: Albuterol 0.083% Inhal Sol (2.5 mg/3 mL) UD INH SCH ×2 (21:15→21:36)
[2017-12-25] MEDS: Albuterol-Ipratrop 3 mg / 0.5 (3 ml) UD IH SCH ×2 (22:23→22:28)
[2017-12-25] MEDS ORDERED: Albuterol-Ipratrop 3 mg / 0.5 (3 ml) UD ONE (22:24)
[2017-12-25 22:47] VITALS: PULSE 98; RESP 20
[2017-12-25 23:40] VITALS: O2SAT 97
== END 2017-12-25 23:46 | disposition home or self-care (01) ==
LOC: C.ER 20:16
DX: J45.901 Unspecified asthma with (acute) exacerbation (principal)

== ENCOUNTER 2018-01-07 06:50 | Emergency (ER) | payer MEDICAID ==
[2018-01-07 06:50] VITALS: BMI 25.0
[2018-01-07] MEDS ORDERED: Albuterol-Ipratrop 3 mg / 0.5 (3 ml) UD ONE ×3 (07:10→07:42)
--- NOTE | 2018-01-07 07:27 | C.PDOC ---
History Of Present Illness 22-year-old male, PMHx includes Asthma, presents to the emergency department with complaints of cough and wheezing. Patients last evaluation was on 12/25. 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 He ran out of his duoneb liquids, but states he has albuterol puffer and aerochamber spacer. Patient has a Hx of multiple evaluations in ED for same complaint. He has been referred to pulmonology but did not follow up. Denies fever, chills, URI symptoms, nausea, vomit, rash, recent travel, sick contacts. Time Seen by Provider: 01/07/18 07:19 Chief Complaint (Nursing): Respiratory Distress History Per: Patient History/Exam Limitations: no limitations Past Medical History Reviewed: Historical Data, Nursing Documentation, Vital Signs Vital Signs: Last Vital Signs Temp 98 F 01/07/18 07:01 Pulse 88 01/07/18 07:01 Resp 22 01/07/18 07:15 BP 111/79 01/07/18 07:01 Pulse Ox 96 01/07/18 07:01 - Medical History PMH: Asthma, Fractures (Left arm surgery 2006) Family History: States: No Known Family Hx - Social History Hx Tobacco Use: No Hx Alcohol Use: No Hx Substance Use: No - Immunization History Hx Tetanus Toxoid Vaccination: No Hx Influenza Vaccination: No Hx Pneumococcal Vaccination: No Review Of Systems Constitutional: Negative for: Fever Cardiovascular: Negative for: Chest Pain, Edema, Light Headedness Respiratory: Positive for: Cough, Wheezing. Negative for: Hemoptysis, Pleuritic Pain, Sputum Gastrointestinal: Negative for: Nausea, Vomiting Musculoskeletal: Negative for: Back Pain Neurological: Negative for: Weakness, Numbness, Headache, Dizziness Physical Exam - Physical Exam Appears: Non-toxic, No Acute Distress Skin: Warm, Dry, No Rash Head: Atraumatic Eye(s): bilateral: Normal Inspection Nose: Normal Oral Mucosa: Moist Lips: Normal Appearing Neck: Normal ROM Chest: Symmetrical Cardiovascular: Rhythm Regular, No Murmur Respiratory: No Accessory Muscle Use, Rhonchi (scattered), Wheezing (B/L expiratory) Gastrointestinal/Abdominal: Soft, No Tenderness Extremity: Normal ROM, No Deformity Neurological/Psych: Oriented x3, Normal Speech ED Course And Treatment O2 Sat by Pulse Oximetry: 96 Pulse Ox Interpretation: Normal (RA) Medical Decision Making Medical Decision Making: reactive airway dz usually well controlled with nebs only ran out of liq's multiple failed referrals to Pulm Start a LABA Disposition Doctor Will See Patient In The: Office Counseled Patient/Family Regarding: Studies Performed, Diagnosis - Disposition Referrals: [facility] [Outside] [employer] [facility] [Outside] [facility] [Outside] [facility] [Outside] Melvin Reyes MD [Staff Provider] - Disposition: HOME/ ROUTINE Disposition Time: 07:26 Condition: GOOD Additional Instructions: tratamientos de Duoneb con DOS ampulas cada 3-4 horas neda necessario Albuterol bomba 2 puffs con el Aerochamber Spacer (tubo plastico) cada 3-4 horas cuando afuera de la casa. Empiesa Flovent (ayuda en prevenir attackes del Asthma) 1 puff cada 12 horas (8AM y 8PM) Busca otro trabajo que no tiene polvo que provoca wick asthma Sigue con Dr. Reyes- especialista de los pulmones Sigue con [facility] [place] Prescriptions: Albuterol HFA [Ventolin HFA 90 mcg/actuation (8 g)] 2 puff IH Q4H PRN #1 puff PRN Reason: asthma Albuterol/Ipratropium [Duoneb 3 MG/3 Ml-0.5 MG/3 Ml 3 Ml] 6 ml IH Q4H PRN #100 neb PRN Reason: asthma Fluticasone/Salmeterol [Advair 250-50 Diskus] 1 each IH Q12H #1 blst.w.dev Spacer, Inhalation [Aerochamber] 1 dev IH DAILY #1 dev Instructions: Asthma, Adult (DC) Forms: [employer] (Djiboutian) Print Language: BARBADIAN - Clinical Impression Clinical Impression: Exacerbation of asthma - Scribe Statement The provider has reviewed the documentation as recorded by the Scribe (Champ Montgomery) All medical record entries made by the Scribe were at my direction and personally dictated by me. I have reviewed the chart and agree that the record accurately reflects my personal performance of the history, physical exam, medical decision making, and the department course for this patient. I have also personally directed, reviewed, and agree with the discharge instructions and disposition.
[2018-01-07] MEDS: Albuterol-Ipratrop 3 mg / 0.5 (3 ml) UD INH PRN ×2 (07:30→07:31)
[2018-01-07] MEDS ORDERED: Albuterol-Ipratrop 3 mg / 0.5 (3 ml) UD INH STA (07:36)
[2018-01-07 08:09] VITALS: BP 101/70; PULSE 83; RESP 20; TEMP 97.8
[2018-01-07 09:30] VITALS: O2SAT 96
== END 2018-01-07 08:34 | disposition home or self-care (01) ==
LOC: C.ER 06:50
DX: J45.901 Unspecified asthma with (acute) exacerbation (principal)

== ENCOUNTER 2018-02-28 00:50 | Inpatient (IN) | payer MEDICAID ==
[2018-02-28 00:51] VITALS: BMI 25.0
--- NOTE | 2018-02-28 01:38 | C.PDOC ---
History Of Present Illness 22 year old male presents to the ED requesting detox for heroin abuse. 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 Patient denies SI/HI, hallucinations, injury, fall, trauma, CP, SOB. Time Seen by Provider: 02/28/18 01:18 Chief Complaint (Nursing): Substance Abuse History Per: Patient History/Exam Limitations: no limitations Onset/Duration Of Symptoms: Hrs Current Symptoms Are (Timing): Still Present Suicide/Self Injury Attempted (Context): None Modifying Factor(s): Other (heroin) Associated Symptoms: denies: Depression, Suicidal Thoughts, Suicidal Plan Recent travel outside of the [place]: No Additional History Per: Patient Past Medical History Reviewed: Historical Data, Nursing Documentation, Vital Signs Vital Signs: Last Vital Signs Temp 98.6 F 02/28/18 01:09 Pulse 93 H 02/28/18 01:09 Resp 18 02/28/18 01:09 BP 109/67 02/28/18 01:09 Pulse Ox 96 02/28/18 01:09 - Medical History PMH: Asthma, Fractures (Left arm surgery 2005) Surgical History: No Surg Hx Family History: States: Unknown Family Hx - Social History Hx Tobacco Use: No Hx Alcohol Use: No Hx Substance Use: Yes - Immunization History Hx Tetanus Toxoid Vaccination: No Hx Influenza Vaccination: No Hx Pneumococcal Vaccination: No Review Of Systems Constitutional: Negative for: Fever, Chills Cardiovascular: Negative for: Chest Pain, Palpitations Respiratory: Negative for: Shortness of Breath Gastrointestinal: Negative for: Nausea, Vomiting, Abdominal Pain Skin: Negative for: Rash Psych: Negative for: Depression, Suicidal ideation Physical Exam - Physical Exam Appears: Non-toxic, No Acute Distress Skin: Normal Color, Warm, Dry Head: Atraumatic, Normacephalic Eye(s): bilateral: Normal Inspection Neck: Normal ROM, Supple Chest: Symmetrical Cardiovascular: Rhythm Regular Respiratory: Normal Breath Sounds, No Rales, No Rhonchi, No Wheezing Gastrointestinal/Abdominal: Soft, No Tenderness, No Guarding, No Rebound Extremity: Normal ROM, No Tenderness, No Swelling Neurological/Psych: Oriented x3, Normal Speech, Normal Cognition Gait: Steady ED Course And Treatment - Laboratory Results Result Diagrams: 02/28/18 02:10 02/28/18 02:10 O2 Sat by Pulse Oximetry: 96 (ON RA) Pulse Ox Interpretation: Normal Reevaluation Time: 02:56 Reassessment Condition: Unchanged (MED CLEAR FOR DETOX. CRISIS NOTIFIED) Disposition Counseled Patient/Family Regarding: Studies Performed, Diagnosis - Disposition Disposition: HOSPITALIZED Disposition Time: 05:21 Condition: STABLE Forms: [facility] (Italian) - Clinical Impression Clinical Impression: Narcotic abuse - Scribe Statement The provider has reviewed the documentation as recorded by the Scribe Marvin Williamson All medical record entries made by the Scribe were at my direction and personally dictated by me. I have reviewed the chart and agree that the record accurately reflects my personal performance of the history, physical exam, medical decision making, and the department course for this patient. I have also personally directed, reviewed, and agree with the discharge instructions and disposition.
[2018-02-28 02:16] LABS: BASO # 0.1 K/uL (0.0-0.2); BASO % 1.2 % (0.0-2.0); HEMOGLOBIN 12.8 g/dL (12.0-18.0); LYMPH # 2.3 K/uL (1.0-4.3); MEAN CELL VOLUME 84.7 fL (80.0-94.0); MEAN CORPUSCULAR HEMOGLOBIN 28.5 pg (27.0-31.0); MEAN CORPUSCULAR HGB CONC 33.7 g/dL (33.0-37.0); MEAN PLATELET VOLUME 7.7 fL (7.2-11.7); MONO # 0.7 K/uL (0.0-0.8); MONO % 9.3 % (0.0-10.0); NEUT # 3.7 K/uL (1.8-7.0); NEUT % 47.5 % (50.0-75.0); RBC 4.5 Mil/uL (4.40-5.90); RED CELL DISTRIBUTION WIDTH 13.8 % (11.5-14.5); WHITE BLOOD COUNT 7.9 K/uL (4.8-10.8)
[2018-02-28 02:19] LABS: URINE BILIRUBIN NEGATIVE (NEGATIVE); URINE BLOOD NEGATIVE (NEGATIVE); URINE CLARITY Clear (Clear); URINE COLOR Yellow (YELLOW); URINE GLUCOSE (UA) NORMAL (Normal); URINE LEUKOCYTE ESTERASE NEG Leu/uL (Negative); URINE PROTEIN NEGATIVE (NEGATIVE); URINE UROBILINOGEN NORMAL mg/dL (0.2-1.0)
[2018-02-28 02:28] LABS: ALB/GLOB RATIO 1.7 (1.0-2.1); ALBUMIN 4.2 g/dL (3.5-5.0); ALT/SGPT 26 U/L (21-72); AST/SGOT 29 U/L (17-59); BLOOD UREA NITROGEN 12 mg/dL (9-20); CALCIUM 8.5 mg/dl (8.6-10.4); GFR NON-AFRICAN AMERICAN > 60
[2018-02-28 02:37] LABS: BARBITURATES, UR NEGATIVE (NEGATIVE); BENZODIAZEPINES, UR NEGATIVE (NEGATIVE); PHENCYCLIDINE, UR NEGATIVE (NEGATIVE)
[2018-02-28] MEDS ORDERED: Albuterol-Ipratrop 3 mg / 0.5 (3 ml) UD ONE (02:51)
[2018-02-28] MEDS ORDERED: Albuterol 0.083% Inhal Sol (2.5 mg/3 mL) UD INH STA (02:52)
[2018-02-28 02:53] LABS: OPIATES, UR POSITIVE (NEGATIVE)
[2018-02-28] MEDS ORDERED: traZODone 25 mg Tab PO PRN (05:51)
--- NOTE | 2018-02-28 06:30 | PCM.BM ---
<Elio Browning D - Last Filed: 02/28/18 06:29> Treatment Plan Problems - Problems identified on initial assessmt potential for opiates withdrawal Date Initiated: 02/28/18 Time Initiated: 06:29 Assessment reference: NA Status: Active Treatment assets and liabiliti Patient Assests: cooperative, ADL independent, good support system, cognitively intact Patient Liabilities: substance abuse - Milieu Protocol Maintain good personal hygiene: daily Encourage regular showers, daily Remind patient to perform daily oral care, daily Assist patient to perform ADL's Maintain personal safety: every shift Educate patient to report safety concerns to staff, every shift Monitor environment for contraband/sharps Medication safety: Monitor for expected outcome, potential side effects: every shift, Assess barriers to learning: every shift, Assess readiness for medication education: every shift <Reginald Reyes - Last Filed: 02/28/18 22:09> - Diagnosis (1) Opioid use disorder, severe, dependence Status: Acute Interventions: 02/28/18 22:09 * Assess 7x/week regarding severity of withdrawal * Educate regarding risks, benefits, side effects and alternatives of medications * Use Motivational Interviewing for abstinence * Use CBT for relapse prevention * Medication management for withdrawal symptoms * Encourage medication assisted treatment
[2018-02-28 10:06] VITALS: RESP 18; O2SAT 98
[2018-02-28] MEDS ORDERED: Albuterol HFA 90 mcg/actuation (8 g) INH PRN (10:06)
[2018-02-28] MEDS ORDERED: Aluminum Hydroxide/Magnesium Hydroxide Susp (30 mL) PO PRN (11:12)
[2018-02-28 13:31] VITALS: BP 141/76; PULSE 85; TEMP 98
--- NOTE | 2018-02-28 22:03 | PCM.PSYCH ---
Initial Psychiatric Evaluation - Initial Psychiatric Evaluation Type of Admission: Voluntary Legal Status: Capacity Chief Complaint (in patient's own words): I need help for my heroin use. 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 Opioid: He started using heroin at 18 years of age, increased gradually to 10 bags daily, IV. Last used yesterday. No previous history of detox or rehab. No previous treatment. This was his first treatment for substance use. Denied use of any other drugs including alcohol, cocaine, cannabis. Denies smoking cigarettes. Patient was born in [place] and has high school graduation. He is working in construction. Never and has no children. Patient lives with his mother. His height is 5 feet 8 inches and weight is 150 pounds. Past Psychiatric History - Past Psychiatric History Previous Treatment History: None History of Abuse: None reported History of ETOH/Drug Use: See HPI History of Family Illness: None reported. Pertinent Medical Hx (Current Medical&Sleep Prob, Allergies): Allergies Allergy/AdvReac Type Severity Reaction Status Date / Time No Known Allergies Allergy Verified 02/28/18 01:21 Albuterol HFA [Ventolin HFA 90 mcg/actuation (8 g)] 2 puff IH Q4H PRN #1 puff 01/07/18 Albuterol/Ipratropium [Duoneb 3 MG/3 Ml-0.5 MG/3 Ml 3 Ml] 6 ml IH Q4H PRN #100 neb 01/07/18 Fluticasone/Salmeterol [Advair 250-50 Diskus] 1 each IH Q12H #1 blst.w.dev 01/07/18 Spacer, Inhalation [Aerochamber] 1 dev IH DAILY #1 dev 01/07/18 Review of Systems - Psychiatric Psychiatric: As Per HPI, Anxiety Mental Status Examination - Personal Presentation Personal Presentation: Looks stated age - Affect Affect: Other (Appropriate) - Motor Activity Motor Activity: Calm - Reliability in Providing Information Reliability in Providing Information: Fair - Speech Speech: Organized - Mood Mood: Anxious - Formal Thought Process Formal Thought Process: No Impairment - Hallucinations/Delusions Hallucinations: Other (None reported) Delusions: Other - Obsessions/Compulsions Obsessions: None Compulsions: None - Cognitive Functions Orientation: Person, Place, Situation, Time Sensorium: Alert Attention/Concentration: Attentive Abstract Thinking: [place] Estimate of Intelligence: Average Judgement: Intact, as evidence by: Insight regarding need for hospitalization Memory: Recent intact, as evidence by: Ability to recall events of the day, Remote intact, as evidenced by: Ability to recall historical events - Risk Risk: Withdrawal, Diminished functioning - Strength & Assets Inventory Strength & Assets Inventory: Family support, Employment status, Cooperative - Limitations Limitations: Other (Lives with mother) DSM 5 DX - DSM 5 DSM 5 Diagnosis: Opioid withdrawal. Opioid use disorder severe - Recommended/Plan of Treatment Treatment Recommendations and Plan of Treatment: Patient education. Supportive therapy. CBT for relapse prevention. [place] for abstinence. We will start methadone taper for opiate withdrawal symptoms. Other as needed medications. Projected ELOS: 4-5 days - Smoking Cessation Smoking Cessation Initiated: No Reason for not providing: Patient does not smoke cigarettes
--- NOTE | 2018-02-28 22:12 | PCM.PYCHDC ---
Mental Status Examination - Mental Status Examination Orientation: Person, Place, Situation, Time Memory: Intact Mood: Neutral Affect: Other (Appropriate) Speech: Appropriate Attention: WNL Concentration: WNL Association: WNL Fund of Knowledge: WNL Formal Thought Process: No Impairment Description of patient's judgement and insight: Poor Psychotic Thoughts and Behaviors: None Suicidal Ideation: No Current Homicidal Ideation?: No Discharge Summary - Discharge Note Reason for Hospitalization: Opioid use disorder severe Laboratory Data: Abnormal Lab Results 02/28/18 02/28/18 02/28/18 02:10 02:10 02:10 WBC 7.9 RBC 4.50 Hgb 12.8 Hct 38.1 MCV 84.7 MCH 28.5 MCHC 33.7 RDW 13.8 Plt Count 255 MPV 7.7 Neut % (Auto) 47.5 L Lymph % (Auto) 29.0 [place] % (Auto) 9.3 Eos % (Auto) 13.0 H Baso % (Auto) 1.2 Neut # (Auto) 3.7 Lymph # (Auto) 2.3 [place] # (Auto) 0.7 Eos # (Auto) 1.0 H Baso # (Auto) 0.1 Sodium 138 Potassium 4.0 Chloride 101 Carbon Dioxide 27 Anion Gap 14 BUN 12 Creatinine 0.6 L Est GFR ( Amer) > 60 Est GFR (Non-Af Amer) > 60 Random Glucose 106 Calcium 8.5 L Phosphorus 4.4 Magnesium 2.2 Total Bilirubin 0.3 AST 29 ALT 26 Alkaline Phosphatase 107 Total Protein 6.7 Albumin 4.2 Globulin 2.5 Albumin/Globulin Ratio 1.7 Urine Color Yellow Urine Clarity Clear Urine pH 5.0 Ur Specific [place] 1.023 Urine Protein Negative Urine Glucose (UA) Normal Urine Ketones Negative Urine Blood Negative Urine Nitrate Negative Urine Bilirubin Negative Urine Urobilinogen Normal Ur Leukocyte Esterase Neg Urine WBC (Auto) 2 Urine RBC (Auto) < 1 Hyaline Casts 3-5 H Urine Opiates Screen Urine Methadone Screen Ur Barbiturates Screen Ur Phencyclidine Scrn Ur Amphetamines Screen U Benzodiazepines Scrn U Oth Cocaine Metabols U Cannabinoids Screen Alcohol, Quantitative < 10 02/28/18 02:10 WBC RBC Hgb Hct MCV MCH MCHC RDW Plt Count MPV Neut % (Auto) Lymph % (Auto) [place] % (Auto) Eos % (Auto) Baso % (Auto) Neut # (Auto) Lymph # (Auto) [place] # (Auto) Eos # (Auto) Baso # (Auto) Sodium Potassium Chloride Carbon Dioxide Anion Gap BUN Creatinine Est GFR ( Amer) Est GFR (Non-Af Amer) Random Glucose Calcium Phosphorus Magnesium Total Bilirubin AST ALT Alkaline Phosphatase Total Protein Albumin Globulin Albumin/Globulin Ratio Urine Color Urine Clarity Urine pH Ur Specific [place] Urine Protein Urine Glucose (UA) Urine Ketones Urine Blood Urine Nitrate Urine Bilirubin Urine Urobilinogen Ur Leukocyte Esterase Urine WBC (Auto) Urine RBC (Auto) Hyaline Casts Urine Opiates Screen Positive H Urine Methadone Screen Negative Ur Barbiturates Screen Negative Ur Phencyclidine Scrn Negative Ur Amphetamines Screen Negative U Benzodiazepines Scrn Negative U Oth Cocaine Metabols Negative U Cannabinoids Screen Negative Alcohol, Quantitative Consultations:: List each consultation separately and include: 1. Reason for request. 2. Findings. 3. Follow-up Summary of Hospital Course include:: 1. Description of specific treatment plan utilized for patients during their course of treatmen. 2. Summarize the time- course for resolution of acute symptoms and/or regressed behaviors. 3. Describe issues identified and worked on during hospitalization. 4. Describe medication utilized. 5. Describe medical problems identified and treated. 6. 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 Opioid: He started using heroin at 18 years of age, increased gradually to 10 bags daily, IV. Last used yesterday. No previous history of detox or rehab. No previous treatment. This was his first treatment for substance use. Denied use of any other drugs including alcohol, cocaine, cannabis. Denies smoking cigarettes. Patient was born in [place] and has high school graduation. He is working in construction. Never and has no children. Patient lives with his mother. His height is 5 feet 8 inches and weight is 150 pounds. Patient was started on methadone taper for opiate withdrawal symptoms plus other as needed medications. Later during the day patient decided to leave the unit without getting any treatment. Patient was educated about the treatment. Patient was also educated that if patient leave without treatment and in case of any adverse events including decompensation, relapse, overdose or even of the patient, patient will be responsible for his acts. Patient understood and agreed with above, still refused to stay and left the unit AGAINST MEDICAL ADVICE. At the time of evaluation and discharge, patient was calm and cooperative, awake, alert and oriented x3, had no delusions, no auditory or visual hallucinations, no suicidal ideations or homicidal ideations. - Diagnosis (1) Opioid use disorder, severe, dependence Status: Acute - Final Diagnosis (DSM 5) Condition upon Discharge: STABLE Disposition: AGAINST MEDICAL ADVICE - Smoking Cessation Smoking Cessation Medication prescribed: No - Antipsychotic Medications Pt discharged on 2 or more routine antipsychotic medications: No
== END 2018-02-28 16:03 | disposition left against medical advice (07) | DRG 743 ==
LOC: C.ER 00:50 → C.7D 05:21
PROC: HZ2ZZZZ Detoxification Services for Substance Abuse Treatment (ICD-10-PCS; principal; 2018-02-28)
PROC: HZ52ZZZ Individual Psychotherapy for Substance Abuse Treatment, Cognitive-Behavioral (ICD-10-PCS; 2018-02-28)
PROC: HZ59ZZZ Individual Psychotherapy for Substance Abuse Treatment, Supportive (ICD-10-PCS; 2018-02-28)
PROC: HZ56ZZZ Individual Psychotherapy for Substance Abuse Treatment, Psychoeducation (ICD-10-PCS; 2018-02-28)
DX: F11.23 Opioid dependence with withdrawal (principal); J45.909 Unspecified asthma, uncomplicated; F41.9 Anxiety disorder, unspecified

== ENCOUNTER 2018-04-12 09:05 | Emergency (ER) | payer MEDICAID ==
[2018-04-12 09:13] VITALS: TEMP 98.1; BMI 23.5
[2018-04-12] MEDS ORDERED: Albuterol-Ipratrop 3 mg / 0.5 (3 ml) UD ONE ×3 (09:18→11:20)
[2018-04-12] MEDS ORDERED: Albuterol-Ipratrop 3 mg / 0.5 (3 ml) UD INH STA ×2 (09:44→11:11)
--- NOTE | 2018-04-12 09:52 | C.PDOC ---
History Of Present Illness 22 y/o male with hx asthma, no intubations, pf unk, non smoker, no chronic steroid use, presents to ed with wheezing and chest tightness since last night. pt reports he uses his inhaler about 4 times a day, ran out last night. denies cough, fever or myalgias. Time Seen by Provider: 04/12/18 09:20 Chief Complaint (Nursing): Shortness Of Breath History Per: Patient History/Exam Limitations: no limitations Onset/Duration Of Symptoms: Days (4) Current Symptoms Are (Timing): Still Present Initiating Event: Out Of Medications Current Respiratory Medications: Albuterol Severity: Moderate Associated Symptoms: denies: Fever, Chills, Chest Pain, Bloody Cough, Ankle/Leg Swelling Past Medical History Reviewed: Historical Data, Nursing Documentation, Vital Signs Vital Signs: Last Vital Signs Temp 98.1 F 04/12/18 09:11 Pulse 98 H 04/12/18 09:11 Resp 22 04/12/18 09:19 BP 150/88 04/12/18 09:11 Pulse Ox 95 04/12/18 09:19 - Medical History PMH: Asthma, Fractures (Left arm surgery 2005) Denies: Diabetes, Hepatitis, HIV, HTN, Seizures, Sexually Transmitted Disease - [facility] Procedures DETOXIFICATION SERVICES FOR SUBSTANCE ABUSE TREATMENT (02/28/18) INDIV PSYCHOTHERAPY FOR SUBSTANCE ABUSE TREATMENT, SUPPORT (02/28/18) INDIV PSYCHOTHERAPY FOR SUBSTANCE ABUSE, COGNITIV BEHAVIORAL (02/28/18) INDIV PSYCHOTHERAPY FOR SUBSTANCE ABUSE, PSYCHOEDUCATION (02/28/18) Family History: States: Unknown Family Hx - Social History Hx Tobacco Use: No Hx Alcohol Use: No Hx Substance Use: No (pt denies) - Immunization History Hx Tetanus Toxoid Vaccination: No Hx Influenza Vaccination: No Hx Pneumococcal Vaccination: No Review Of Systems Constitutional: Negative for: Fever, Chills ENT: Negative for: Ear Pain Cardiovascular: Negative for: Chest Pain Respiratory: Positive for: Wheezing, Other (chest tightness) Gastrointestinal: Negative for: Nausea, Vomiting, Abdominal Pain Skin: Negative for: Rash Neurological: Negative for: Weakness, Numbness Physical Exam - Physical Exam Appears: Non-toxic, No Acute Distress, Other (speaks in full sentences half way through taking first albuterol nebulizer treatment. ) Skin: Warm, Dry Head: Atraumatic, Normacephalic Eye(s): bilateral: Normal Inspection Tongue: Normal Appearing Lips: Normal Appearing Neck: Supple Chest: No Tenderness Cardiovascular: Rhythm Regular Respiratory: No Accessory Muscle Use, No Rales, No Rhonchi, Wheezing (scattered expiratory bilateral) Gastrointestinal/Abdominal: Soft, No Tenderness ED Course And Treatment O2 Sat by Pulse Oximetry: 95 Medical Decision Making Medical Decision Making: asthma exacerbation; ran out of meds; pt with pf 340 in middle of first treatment, pf 380 after, still with wheezing; duoneb and prednisone ordered. 1104 pt noted to have marked swelling on right forearm; sts large peice of wood struck him on arm 2 days ago at work. will send for xray. pt with decreased wheezing, wheeze clears with cough. 1223 no fx noted on forearm xray. compartment soft right forearm, with +2 radial pulse, likely hematoma. pt advised cold compresses and to return for worse swelling, numbness, tingling. pt's lungs now cta, he is feeling much better. pf after 3 txs 510, d/c home with albuterol mdi and prednisone Disposition Counseled Patient/Family Regarding: Studies Performed, Diagnosis, Need For Followup, Rx Given - Disposition Referrals: [facility] [Outside] Disposition: HOME/ ROUTINE Disposition Time: 12:27 Condition: IMPROVED Additional Instructions: Use inhaler 2 puffs every 4-6 hours as needed. Take prednisone as prescribed. Cold compresses to right forearm several times a day. Return to ER for worse swelling in arm, loss of feeling. or movement to arm or any other concerns. Follow up in medical clinic for asthma Prescriptions: Albuterol HFA [Ventolin HFA 90 mcg/actuation (8 g)] 2 puff IH Q6 #1 inhaler predniSONE [predniSONE Tab] 2 tab PO DAILY #8 tab Instructions: Asthma, Adult (DC), Contusion (DC) Forms: General Discharge Instructions, [facility] (Maltese), Work Excuse - Clinical Impression Clinical Impression: Asthma exacerbation, Contusion of right forearm, initial encounter
--- NOTE | 2018-04-12 12:05 | RAD ---
PROCEDURE: Radiographs of the right forearm. HISTORY: trauma, swelling COMPARISON: None available. TECHNIQUE: Frontal and lateral views obtained. FINDINGS: BONES: No acute displaced fracture. JOINT SPACES: No dislocation. OTHER FINDINGS: Marked soft tissue swelling. No evidence of radiopaque foreign body. IMPRESSION: Marked soft tissue swelling. No acute displaced fracture, dislocation, or significant joint effusion identified. If symptoms persist, or if there is continued clinical concern, x-ray follow-up in 7-10 days should be considered.
[2018-04-12 12:39] VITALS: BP 136/87; PULSE 87; RESP 18
[2018-04-15 01:08] VITALS: O2SAT 95
== END 2018-04-12 12:38 | disposition home or self-care (01) ==
LOC: C.ER 09:05
DX: J45.901 Unspecified asthma with (acute) exacerbation (principal); S50.11XA Contusion of right forearm, initial encounter; W22.8XXA Striking against or struck by other objects, initial encounter; Y92.89 Other specified places as the place of occurrence of the external cause; Y99.0 Civilian activity done for income or pay

== ENCOUNTER 2018-08-14 06:54 | Emergency (ER) | payer MEDICAID ==
[2018-08-14 06:55] VITALS: BMI 25.0
[2018-08-14 07:02] VITALS: BP 119/82; PULSE 105; RESP 20; TEMP 98.1; O2SAT 97
[2018-08-14] MEDS ORDERED: Albuterol 0.083% Inhal Sol (2.5 mg/3 mL) UD INH STA (07:18)
[2018-08-14] MEDS ORDERED: Albuterol-Ipratrop 3 mg / 0.5 (3 ml) UD INH STA (07:22)
[2018-08-14] MEDS ORDERED: Albuterol 0.083% Inhal Sol (2.5 mg/3 mL) UD IH STA (07:22)
[2018-08-14] MEDS ORDERED: Albuterol 0.083% Inhal Sol (2.5 mg/3 mL) UD ONE ×2 (07:30→07:46)
[2018-08-14] MEDS ORDERED: Albuterol-Ipratrop 3 mg / 0.5 (3 ml) UD ONE (07:50)
--- NOTE | 2018-08-14 08:03 | C.PDOC ---
History Of Present Illness 22 y.o. male with a hx of asthma presents for evaluation of SOB and cough that started this morning. Pt notes symptoms started this morning as he was getting ready for work. Notes he was admitted 2 months ago (not this ED), no intubation. In March the pt was seen and discharged from this ED. Records indicated hx of asthma and narcotic abuse. Denies fever, chills, nausea, vomiting, and any other associated symptoms. Time Seen by Provider: 08/14/18 07:11 Chief Complaint (Nursing): Shortness Of Breath History Per: Patient History/Exam Limitations: no limitations Onset/Duration Of Symptoms: Hrs Current Symptoms Are (Timing): Still Present Associated Symptoms: denies: Fever, Chills Recent travel outside of the [place]: No Past Medical History Reviewed: Historical Data, Nursing Documentation, Vital Signs Vital Signs: Last Vital Signs Temp 98.1 F 08/14/18 07:00 Pulse 105 H 08/14/18 07:00 Resp 20 08/14/18 07:00 BP 119/82 08/14/18 07:00 Pulse Ox 97 08/14/18 07:00 Primary Care Provider: FAMILY PROVIDER,NO - Medical History PMH: Asthma, Fractures (Left arm surgery 2005) Denies: Diabetes, Hepatitis, HIV, HTN, Seizures, Sexually Transmitted Disease - [facility] Procedures DETOXIFICATION SERVICES FOR SUBSTANCE ABUSE TREATMENT (02/28/18) INDIV PSYCHOTHERAPY FOR SUBSTANCE ABUSE TREATMENT, SUPPORT (02/28/18) INDIV PSYCHOTHERAPY FOR SUBSTANCE ABUSE, COGNITIV BEHAVIORAL (02/28/18) INDIV PSYCHOTHERAPY FOR SUBSTANCE ABUSE, PSYCHOEDUCATION (02/28/18) Family History: States: Unknown Family Hx - Social History Hx Tobacco Use: No Hx Alcohol Use: No Hx Substance Use: Yes - Immunization History Hx Tetanus Toxoid Vaccination: No Hx Influenza Vaccination: No Hx Pneumococcal Vaccination: No Review Of Systems Except As Marked, All Systems Reviewed And Found Negative. Constitutional: Negative for: Fever, Chills Respiratory: Positive for: Cough, Shortness of Breath Gastrointestinal: Negative for: Nausea, Vomiting Physical Exam - Physical Exam Appears: Non-toxic, No Acute Distress, Other (unkempt. strong body odor. ) Skin: Warm, Dry Head: Atraumatic, Normacephalic Eye(s): bilateral: Normal Inspection Oral Mucosa: Moist Neck: Normal ROM, Supple Chest: Symmetrical, No Deformity Cardiovascular: Rhythm Regular, No Murmur Respiratory: No Rales, No Rhonchi, Wheezing (wheezing bilaterally, no retractions.) Gastrointestinal/Abdominal: Normal Exam, Soft, No Tenderness Extremity: Bilateral: Atraumatic, Normal Color And Temperature, Normal ROM Neurological/Psych: Oriented x3, Normal Speech, Normal Cognition ED Course And Treatment O2 Sat by Pulse Oximetry: 97 (RA) Pulse Ox Interpretation: Normal Progress Note: Went to re-evaluate the patient , he is not in his room. as per nue who was looking for the patient for 40 min, patient was not found in ED and probably eloped. Medical Decision Making Medical Decision Making: Initial plan: -nebulizer x3 -Prednisone -CXR Progress/Update: Pt eloped. Disposition - Disposition Disposition: ELOPEMENT - ER ONLY Disposition Time: 10:27 Condition: UNKNOWN Forms: [facility] (Danish) - Clinical Impression Clinical Impression: Asthma exacerbation - Scribe Statement The provider has reviewed the documentation as recorded by the Scribe (Leann Britt) All medical record entries made by the Scribe were at my direction and personally dictated by me. I have reviewed the chart and agree that the record accurately reflects my personal performance of the history, physical exam, medical decision making, and the department course for this patient. I have also personally directed, reviewed, and agree with the discharge instructions and disposition.
--- NOTE | 2018-08-14 19:41 | RAD ---
Date of service: 08/14/2018 HISTORY: wheezing COMPARISON: 09/10/2017 TECHNIQUE: Chest PA and lateral views FINDINGS: LUNGS: No active pulmonary disease. PLEURA: No significant pleural effusion identified. No pneumothorax apparent. CARDIOVASCULAR: No aortic atherosclerotic calcification present. Normal cardiac size. No pulmonary vascular congestion. OSSEOUS STRUCTURES: No significant abnormalities. VISUALIZED UPPER ABDOMEN: Normal. OTHER FINDINGS: None. IMPRESSION: No active disease.
== END 2018-08-14 10:27 | disposition left against medical advice (07) ==
LOC: C.ER 06:54
DX: J45.901 Unspecified asthma with (acute) exacerbation (principal)

== ENCOUNTER 2018-08-20 23:39 | Observation (INO) | payer MEDICAID ==
[2018-08-20 23:43] VITALS: BMI 25.0
[2018-08-20] MEDS ORDERED: Albuterol-Ipratrop 3 mg / 0.5 (3 ml) UD ONE ×2 (23:55→23:57)
--- NOTE | 2018-08-20 23:59 | C.PDOC ---
History Of Present Illness 22 y/o male, with history of asthma and hospitalized previously, never intubated, comes in to ED for asthma exacerbation and SOB today. Reports cough and congestion for the last few days. Patient is febrile in the ER. Denies chest pain, nausea, vomiting, or other complaints. Time Seen by Provider: 08/20/18 23:55 Chief Complaint (Nursing): Shortness Of Breath History Per: Patient History/Exam Limitations: no limitations Onset/Duration Of Symptoms: Hrs Current Symptoms Are (Timing): Still Present Past Medical History Reviewed: Historical Data, Nursing Documentation, Vital Signs - Medical History PMH: Asthma, Fractures (Left arm surgery 2005) Denies: Diabetes, Hepatitis, HIV, HTN, Seizures, Sexually Transmitted Disease - [facility] Procedures DETOXIFICATION SERVICES FOR SUBSTANCE ABUSE TREATMENT (02/28/18) INDIV PSYCHOTHERAPY FOR SUBSTANCE ABUSE TREATMENT, SUPPORT (02/28/18) INDIV PSYCHOTHERAPY FOR SUBSTANCE ABUSE, COGNITIV BEHAVIORAL (02/28/18) INDIV PSYCHOTHERAPY FOR SUBSTANCE ABUSE, PSYCHOEDUCATION (02/28/18) Family History: States: No Known Family Hx - Social History Hx Tobacco Use: No Hx Alcohol Use: No Hx Substance Use: Yes - Immunization History Hx Tetanus Toxoid Vaccination: No Hx Influenza Vaccination: No Hx Pneumococcal Vaccination: No Review Of Systems Except As Marked, All Systems Reviewed And Found Negative. Constitutional: Negative for: Fever, Chills ENT: Positive for: Nose Congestion Cardiovascular: Negative for: Chest Pain, Palpitations Respiratory: Positive for: Cough, Shortness of Breath Gastrointestinal: Negative for: Nausea, Vomiting Physical Exam - Physical Exam Appears: Non-toxic, No Acute Distress Skin: Warm, Dry Head: Normacephalic Eye(s): bilateral: Normal Inspection Oral Mucosa: Moist Throat: Normal Neck: Supple Cardiovascular: Rhythm Regular, No Murmur Respiratory: No Rales, No Rhonchi, Wheezing (diffuse wheezing) Gastrointestinal/Abdominal: Soft, No Tenderness Extremity: Bilateral: Atraumatic, Normal ROM Neurological/Psych: Oriented x3, Normal Speech ED Course And Treatment - Laboratory Results Result Diagrams: 08/21/18 00:47 08/21/18 00:47 O2 Sat by Pulse Oximetry: 96 (RA) Pulse Ox Interpretation: Normal Medical Decision Making Medical Decision Making: asthma Plan: --Labs --Chest XR --Duoneb --Flu Swab --Rapid Strep --Tylenol --Solumedrol persistent wheezing will obs. dr fonseca accpets Disposition - Disposition Disposition: HOSPITALIZED Disposition Time: 01:24 Condition: STABLE - Clinical Impression Clinical Impression: Asthma exacerbation - Scribe Statement The provider has reviewed the documentation as recorded by the Dilipibe Rebekah Guillaume Provider Attestation: All medical record entries made by the Scribe were at my direction and personally dictated by me. I have reviewed the chart and agree that the record accurately reflects my personal performance of the history, physical exam, medical decision making, and the department course for this patient. I have also personally directed, reviewed, and agree with the discharge instructions and disposition. Decision To Admit - Pt Status Changed To: Hospital Disposition Of: Observation - . Bed Request Type: Telemetry Admitting Physician: Torito Fonseca Patient Diagnosis: Asthma exacerbation
[2018-08-21] MEDS ORDERED: Albuterol-Ipratrop 3 mg / 0.5 (3 ml) UD INH STA ×3 (00:04)
[2018-08-21] MEDS ORDERED: MethylPREDNISolone 40 mg Vial IVP STA (00:04)
[2018-08-21] MEDS ORDERED: Albuterol-Ipratrop 3 mg / 0.5 (3 ml) UD ONE (00:10)
[2018-08-21 00:51] LABS: BASO # 0.1 K/uL (0.0-0.2); EOS # 0.6 K/uL (0.0-0.7); EOS % 7.4 % (0.0-4.0); HEMOGLOBIN 13.7 g/dL (12.0-18.0); LYMPH # 1.4 K/uL (1.0-4.3); MEAN CELL VOLUME 82.7 fL (80.0-94.0); MEAN CORPUSCULAR HEMOGLOBIN 28.3 pg (27.0-31.0); MEAN CORPUSCULAR HGB CONC 34.2 g/dL (33.0-37.0); MEAN PLATELET VOLUME 8.3 fL (7.2-11.7); MONO # 0.6 K/uL (0.0-0.8); MONO % 7.5 % (0.0-10.0); NEUT # 5.3 K/uL (1.8-7.0); NEUT % 66.1 % (50.0-75.0); NRBC % 0.1 % (0.0-2.0); RBC 4.86 Mil/uL (4.40-5.90); RED CELL DISTRIBUTION WIDTH 14.4 % (11.5-14.5)
[2018-08-21 00:57] LABS: INR 1.2; PARTIAL THROMBOPLASTIN TIME 35.7 SECONDS (21-34); PROTHROMBIN TIME 12.7 SECONDS (9.7-12.2)
[2018-08-21 01:01] LABS: ALB/GLOB RATIO 1.3 (1.0-2.1); ALBUMIN 4.3 g/dL (3.5-5.0); ALT/SGPT 18 U/L (21-72); AST/SGOT 24 U/L (17-59); BLOOD UREA NITROGEN 13 mg/dL (9-20); CALCIUM 9.1 mg/dl (8.6-10.4); GFR NON-AFRICAN AMERICAN > 60
[2018-08-21 01:23] LABS: INFLUENZA A B NEGATIVE FOR FLU A/B (NEGATIVE)
[2018-08-21 02:41] VITALS: RESP 20
[2018-08-21] MEDS ORDERED: Albuterol 0.083% Inhal Sol (2.5 mg/3 mL) UD INH SCH (04:00)
[2018-08-21] MEDS ORDERED: MethylPREDNISolone 40 mg Vial IVP SCH (06:00)
[2018-08-21 07:59] VITALS: BP 138/66; PULSE 71; TEMP 98.2; O2SAT 95
--- NOTE | 2018-08-21 08:13 | RAD ---
Chest x-ray two views HISTORY: Shortness of breath. COMPARISON: None available. FINDINGS: No focal infiltrate or effusion. Heart size within normal limits. IMPRESSION: No focal infiltrate or effusion.
[2018-08-21] MEDS ORDERED: guaiFENesin 600 mg ER Tab PO SCH (10:00)
--- NOTE | 2018-08-21 12:59 | CP.PCM.PCO ---
Physician Communication Note - Physician Communication Note Physician Communication Note: Called by RN to see pt for request to leave the hospital.
--- NOTE | 2018-08-21 19:38 | CP.PCM.HP ---
Present on Admission - Present on Admission Any Indicators Present on Admission: No Past Patient History - Infectious Disease Hx of Infectious Diseases: None - Past Medical History & Family History Past Medical History?: No - Past Social History Smoking Status: Current Some Days Smoker - CARDIAC Hx Hypertension: No - PULMONARY Hx Asthma: Yes - NEUROLOGICAL Hx Seizures: No - HEMATOLOGICAL/ONCOLOGICAL Hx Human Immunodeficiency Virus (HIV): No - INTEGUMENTARY Hx Dermatological Problems: No - MUSCULOSKELETAL/RHEUMATOLOGICAL Hx Fractures: Yes (Left arm surgery 2005) - GASTROINTESTINAL Hx Gastrointestinal Disorders: No - GENITOURINARY/GYNECOLOGICAL Hx Sexually Transmitted Disorders: No - PSYCHIATRIC Hx Substance Use: Yes - SURGICAL HISTORY Hx Surgeries: Yes Hx Orthopedic Surgery: Yes (left arm fx 2005) - ANESTHESIA Hx Anesthesia: Yes Hx Anesthesia Reactions: No Hx Malignant Hyperthermia: No Meds Allergies/Adverse Reactions: Allergies Allergy/AdvReac Type Severity Reaction Status Date / Time No Known Allergies Allergy Verified 08/14/18 07:02 Results - Vital Signs Recent Vital Signs: Last Vital Signs Temp 98.2 F 08/21/18 07:58 Pulse 71 08/21/18 07:58 Resp 20 08/21/18 07:58 BP 138/66 08/21/18 07:58 Pulse Ox 95 08/21/18 09:00 - Labs Result Diagrams: 08/21/18 00:47 08/21/18 00:47 Labs: Laboratory Results - last 24 hr 08/21/18 08/21/18 08/21/18 00:47 00:47 00:47 WBC 8.0 RBC 4.86 Hgb 13.7 Hct 40.2 MCV 82.7 D MCH 28.3 MCHC 34.2 RDW 14.4 Plt Count 248 MPV 8.3 Neut % (Auto) 66.1 Lymph % (Auto) 18.0 L Lamb % (Auto) 7.5 Eos % (Auto) 7.4 H Baso % (Auto) 1.0 Neut # (Auto) 5.3 Lymph # (Auto) 1.4 Lamb # (Auto) 0.6 Eos # (Auto) 0.6 Baso # (Auto) 0.1 PT 12.7 H INR 1.2 APTT 35.7 H Sodium 137 Potassium 3.9 Chloride 100 Carbon Dioxide 25 Anion Gap 15 BUN 13 Creatinine 0.7 L Est GFR ( Amer) > 60 Est GFR (Non-Af Amer) > 60 Random Glucose 125 H Calcium 9.1 Total Bilirubin 0.3 AST 24 ALT 18 L D Alkaline Phosphatase 99 Total Protein 7.5 Albumin 4.3 Globulin 3.2 Albumin/Globulin Ratio 1.3 Influenza Typ A,B (EIA) Grp A Beta Strep Ag 08/21/18 00:59 WBC RBC Hgb Hct MCV MCH MCHC RDW Plt Count MPV Neut % (Auto) Lymph % (Auto) Lamb % (Auto) Eos % (Auto) Baso % (Auto) Neut # (Auto) Lymph # (Auto) Lamb # (Auto) Eos # (Auto) Baso # (Auto) PT INR APTT Sodium Potassium Chloride Carbon Dioxide Anion Gap BUN Creatinine Est GFR ( Amer) Est GFR (Non-Af Amer) Random Glucose Calcium Total Bilirubin AST ALT Alkaline Phosphatase Total Protein Albumin Globulin Albumin/Globulin Ratio Influenza Typ A,B (EIA) Negative for flu a/b Grp A Beta Strep Ag Negative
--- NOTE | 2018-08-22 05:16 | HP ---
CHIEF COMPLAINT: Cough, congestion, and wheezing. HISTORY OF PRESENT ILLNESS: This is a 22-year-old male with a history of bronchial asthma, came in because of cough, congestion and shortness of breath for the last two days. The patient denied any history of prior hospitalization or mechanical ventilator. He is not taking any medications. He denied any fever, chills or rigors. PAST MEDICAL HISTORY: Asthma. SOCIAL HISTORY: Nonsmoker. Positive substance abuser. FAMILY HISTORY: Noncontributory. MEDICATIONS: Unknown. PHYSICAL EXAMINATION: GENERAL: A young male in minimal distress. VITAL SIGNS: Blood pressure 130/56, pulse 71, respiratory rate 20, temperature 98.2. LUNGS: Bilateral expiratory rhonchi. CARDIOVASCULAR SYSTEM: S1 and S2 regular. ABDOMEN: Soft. ASSESSMENT: Exacerbation of asthma. PLAN: The patient signed out against medical advice. Torito Fonseca MD
[2018-08-23] MEDS ORDERED: Pneumococcal 23-Valent Vaccine IM ONE (10:00)
== END 2018-08-21 11:20 | disposition left against medical advice (07) ==
LOC: C.ER 23:39 → C.9E 08-21 01:21 → C.3T 08-21 02:02
PROVIDERS: ADMIT Internal Medicine; ATTEND Internal Medicine
DX: J45.901 Unspecified asthma with (acute) exacerbation (principal)
CPT/HCPCS: 71046; 80053; 85025; 85610; 85730; 87070; 87430; 87804; 94150; 94640; 96374; 99285; G0378; J2920